=== PATIENT | male | born 1985 | race Caucasian/White ===

== ENCOUNTER 2021-12-13 02:00 | Emergency (ER) | payer SELFPAY ==
--- NOTE | ~2021-12-13 | CT_ITS ---
EXAMINATION: CT abdomen pelvis wo con DATE: 12/13/2021 03:46 INDICATION: Left-sided abdominal pain. TECHNIQUE: 1. Computed tomography (CT) of the abdomen and pelvis was performed without intravenous contrast. Aut omated exposure control and iterative reconstruction technique were employed. The dose-length product was 1795.70 mGy-cm. 2. AP view of the abdomen and pelvis was obtained on 3 supine radiographs. COMPARISON: None FINDINGS: CT: Discoid atelectasis/scarring in the right lower lobe. Heart size is normal. No pericardial or pleural effusion. Subtle gallstones within the otherwise normal-appearing gallbladder. Liver, spleen, pancre as, bilateral adrenal glands and right kidney are normal. 2 mm stone in the distalmost left ureter wi thin 1 cm of the ureterovesicular junction. Minimal left hydronephrosis with asymmetric mild left per inephric stranding. No other urolithiasis. Decompressed bladder is normal. Bowels including appendix are normal. No free intraperitoneal gas or fluid. No pathologically enlarged abdominal or pelvic lymp hadenopathy. Mild lumbar dextrocurvature. Mild to moderate thoracolumbar spondylosis. Chronic appeari ng mild anterior wedging at T10-T12. KUB: 2 mm distal left ureteral stone be discretely discernible in the left hemipelvis on the plain radiogr aphs. No other urolithiasis. Normal bowel gas pattern. IMPRESSION: 1. Single 2 mm stone at the distalmost left ureter with minimal left hydronephrosis. 2. Cholelithiasis. Reviewed, dictated and finalized at location A. IMPRESSION: 1. Single 2 mm stone at the distalmost left ureter with minimal left hydronephr osis. 2. Cholelithiasis.
--- NOTE | ~2021-12-13 | XR_ITS ---
EXAMINATION: XR chest 2V DATE: 12/13/2021 06:31 INDICATION: Hypoxia TECHNIQUE: PA and lateral views of the chest were obtained. COMPARISON: Chest radiograph dated 04/06/2004 FINDINGS: The lungs remain clear with no focal airspace opacities, pulmonary edema, pleural effusion or pneumot horax. The cardiomediastinal silhouette is normal. Visualized bones and soft tissues are unremarkable . IMPRESSION: 1. No acute cardiopulmonary disease. Reviewed, dictated and finalized at location A.
[2021-12-13 02:04] VITALS: BP 158/108; PULSE 96; RESP 18; TEMP 36.7; O2SAT 99
--- NOTE | 2021-12-13 02:29 | ED.MALEGU ---
HPI - Male Genitourinary General Chief complaint: Urogenital-Male <Adilene Roger MD - Last Filed: 12/13/21 19:30> Stated complaint: Left flank pain <Adilene Roger MD - Last Filed: 12/13/21 19:30> Time Seen by Provider: 12/13/21 02:15 <Adilene Roger MD - Last Filed: 12/13/21 19:30> Source: patient and RN notes reviewed <Adilene Roger MD - Last Filed: 12/13/21 19:30> Mode of arrival: ambulatory <Adilene Roger MD - Last Filed: 12/13/21 19:30> Limitations: no limitations <Adilene Roger MD - Last Filed: 12/13/21 19:30> History of Present Illness HPI Narrative: This is a 36 year old male who presents for evaluation of left lower abdominal pain. He developed sudden onset pain at 11 pm tonight. His pain has been constant and nonradiating. He has not taken any medication for pain. He states his pain feels similar to episode of kidney stone 6 years ago. He denies associated nausea, vomiting, fever, hematuria or dysuria. He rates pain 10/10 <Adilene Roger MD - Last Filed: 12/13/21 19:30> Related Data Allergies/Adverse reactions: Allergies Allergy/AdvReac Type Severity Reaction Status Date / Time No Known Allergies Allergy Verified 12/13/21 02:07 <Adilene Roger MD - Last Filed: 12/13/21 19:30> Review of Systems Review of Systems: All systems reviewed & are unremarkable except as noted in HPI and below <Adilene Roger MD - Last Filed: 12/13/21 19:30> Constitutional: Constitutional: Denies chills, Denies fatigue and Denies fever(s) <Adilene Roger MD - Last Filed: 12/13/21 19:30> Cardiovascular: Cardiovascular: Denies chest pain and Denies rapid heart rate <Adilene Roger MD - Last Filed: 12/13/21 19:30> Respiratory: Respiratory: Denies chest congestion and Denies cough <Adilene Roger MD - Last Filed: 12/13/21 19:30> Gastrointestinal: Gastrointestinal: Reports abdominal pain, Denies diarrhea, Denies nausea and Denies vomiting <Adilene Roger MD - Last Filed: 12/13/21 19:30> Genitourinary: Genitourinary: Denies hematuria and Denies dysuria <Adilene Roger MD - Last Filed: 12/13/21 19:30> Musculoskeletal: Musculoskeletal: Denies back pain <Adilene Roger MD - Last Filed: 12/13/21 19:30> PMFSH Past Medical History Medical History: Medical History (Updated 12/13/21 @ 06:33 by Adilene Roger MD) Kidney stone <Adilene Roger MD - Last Filed: 12/13/21 19:30> Social History Social History: Social History (Updated 12/13/21 @ 02:31 by Adilene Roger MD) Substance use type: marijuana <Adilene Roger MD - Last Filed: 12/13/21 19:30> Exam Const: General: alert <Adilene Roger MD - Last Filed: 12/13/21 19:30> Nutritional Appearance: well nourished <Adilene Roger MD - Last Filed: 12/13/21 19:30> Other: patient appears to be in pain <Adilene Roger MD - Last Filed: 12/13/21 19:30> HENMT: Head: normal to inspection <Adilene Roger MD - Last Filed: 12/13/21 19:30> Eyes: EOM: EOMs intact bilaterally <Adilene Roger MD - Last Filed: 12/13/21 19:30> Resp: Effort & Inspection: normal respiratory effort <Adilene Roger MD - Last Filed: 12/13/21 19:30> Auscultation: clear to auscultation bilaterally <Adilene Roger MD - Last Filed: 12/13/21 19:30> Cardio: Rate: regular rate <Adilene Roger MD - Last Filed: 12/13/21 19:30> Rhythm: regular rhythm <Adilene Roger MD - Last Filed: 12/13/21 19:30> Heart sounds: no murmurs <Adilene Roger MD - Last Filed: 12/13/21 19:30> GI: GI Palp: Yes Soft to palpation, No Tenderness to palpation present (GI), No Guarding due to palpation present (GI) and No Rigid due to palpation <Adilene Roger MD - Last Filed: 12/13/21 19:30> Auscultation: normal bowel sounds <Adilene Roger MD - Last Filed: 12/13/21 19:30> Skin: General skin exam: normal color <Adilene Roger MD - Last Filed: 12/13/21 19:30> Ra
[2021-12-13 03:06] LABS: Basophils Absolute Auto 0.1 K/mm3 (0.0-0.1); Basophils Percent Auto 0.3 % (0.2-1.2); Eosinophils Absolute Auto 0.2 K/mm3 (0-0.3); Eosinophils Percent Auto 1.5 % (0-4.4); Hematocrit 47.7 % (42.0-52.0); Hemoglobin 15.4 g/dL (14.0-18.0); Immature Granulocyte Absolute 0.07 K/mm3 (0.00-0.031); Immature Granulocyte Percent A 0.4 % (0-0.5); Lymphocytes Absolute Auto 3.02 K/mm3 (0.9-3.2); Lymphocytes Percent Auto 19.2 % (18.3-44.2); Mean Corpuscular HGB Conc 32.3 g/dl (32-36); Mean Corpuscular Hemoglobin 28.9 pg (26-34); Mean Corpuscular Volume 89.7 fl (80-100); Mean Platelet Volume 9.8 fl (7.4-10.4); Monocytes Absolute Auto 1.7 K/mm3 (0.1-0.6); Monocytes Percent Auto 10.6 % (2.6-8.5); Neutrophils Absolute Auto 10.7 K/mm3 (1.3-6.7); Platelet Count Result 267 k/mm3 (150-375); Red Blood Count 5.32 M/mm3 (4.6-6.20); Red Cell Distribution Width 14.5 % (11.5-14.5); White Blood Count 15.8 K/mm3 (4.5-10.0)
[2021-12-13 03:15] LABS: Alanine Aminotransferase 29 U/L (6-50); Albumin Level 4.4 g/dL (3.5-5.1); Alkaline Phosphatase 112 U/L (38-126); Anion Gap 10 mmol/L (8-16); Aspartate Amino Transferase 23 U/L (17-59); Bilirubin,Total 0.4 mg/dL (0.2-1.3); Blood Urea Nitrogen 19 mg/dL (9-20); Calcium 9.4 mg/dL (8.4-10.2); Carbon Dioxide 28 mmol/L (22-30); Chloride 103 mmol/L (98-107); Estimated CRCL calculation 112 ml/min; Estimated Glomerular Filt Rate > 60; Glucose 129 mg/dL (65-110); Sodium 141 mmol/L (137-145)
[2021-12-13] MEDS: ONDANSETRON INJ 4 MG/2 ML VIAL IV PUSH (03:28)
[2021-12-13] MEDS: HYDROmorphone HCL INJ (*CRX) 1 MG/ML SYR IV PUSH (03:29)
[2021-12-13 04:21] LABS: Appearance Urine Clear (Clear); Bilirubin Urine 1+ (Negative); Blood Urine Negative (Negative); Color Urine Yellow (Yellow); Glucose Urine UA Negative (Negative); Ketones Urine 1+ mg/dL (Negative); Leukocyte Esterase Ur Negative LEU/UL (Negative); Nitrate Urine Negative (Negative); Protein Urine Negative (Negative); Specific Grav Ur >= 1.030 (1.001-1.035); Urobilinogen Urine 0.2 mg/dL (<2.0); pH Urine 5.5 (5.0-9.0)
[2021-12-13 04:39] LABS: Calcium Oxalate Crystals Urine Present /hpf; Mucus Urine Rare /lpf; RBC Urine 0-2 /hpf (0-2); Squamous Epithelial Cell Urine Rare /hpf (Few); WBC Urine 0-3 /hpf
[2021-12-13 04:43] LABS: Add Urine Microscopic? YES
[2021-12-13] MEDS: TAMSULOSIN HCL 0.4 MG CAPSULE PO (05:01)
[2021-12-13] MEDS: KETOROLAC 30 MG/ML VIAL (*BKC) IV PUSH (05:01)
--- NOTE | 2021-12-13 07:10 | PC.NURSE ---
Assumed care of pt in room 6.
[2021-12-13 07:11] VITALS: O2SAT 92
--- NOTE | 2021-12-13 07:11 | PC.NURSE ---
Per EDP turned off pt's oxygen. Pt tolerating at this time with sp02 at 93% at this time on room air.
[2021-12-13 07:18] VITALS: BP 149/96; PULSE 103; RESP 18; O2SAT 87
[2021-12-13 07:27] LABS: SARS-CoV-2 RNA PCR Negative
--- NOTE | 2021-12-13 07:27 | PC.NURSE ---
walked pt while monitoring sp02. Pt tolerated very well and maintained spo02 of 94% or greater.
[2021-12-13 07:41] VITALS: BP 139/81; PULSE 104; RESP 19; O2SAT 93
== END 2021-12-13 07:41 | disposition home or self-care (01) ==
PROVIDERS: Emergency Provider General Practice
DX: N13.2 Hydronephrosis with renal and ureteral calculous obstruction (principal); Z20.822 Contact with and (suspected) exposure to COVID-19; K80.20 Calculus of gallbladder without cholecystitis without obstruction; Z87.442 Personal history of urinary calculi
CPT/HCPCS: 36415; 71046; 74018; 74176; 80053; 81001; 85025; 96374; 96375; 99284; A9270; C9803; J1170; J1885; J2405; U0003; U0005

== ENCOUNTER 2022-10-22 13:54 | Inpatient (IN) | payer MEDICAID, SELFPAY ==
[2022-10-22] VITALS (18 sets, daily range): BP systolic 119–169; BP diastolic 65–94; PULSE 89–929; RESP 14–25; TEMP 36.6–36.9; O2SAT 80–97; BMI 59.6
--- NOTE | ~2022-10-22 | CT_ITS ---
Clinical Indication: Hypoxia, tachycardia CT Scan of the Chest with Contrast: Technique: Contiguous sections were acquired throughout the chest after intravenous administration of 200 cc of Omnipaque 350. Dose reduction technique was used on this scan by utilizing automated expos ure control and iterative reconstruction technique. The dose-length product (DLP) was 2026.61 mGy-cm. Findings: There is no evidence of any significant mediastinal, hilar or axillary lymphadenopathy. Exam is essen tially nondiagnostic for pulmonary embolus. There is no evidence of aortic dissection or aneurysm. There is no evidence of pleural or pericardial effusion. There is mild groundglass opacity involving much of the lungs. No nodule or consolidation evident oth erwise. Images through the upper abdomen reveal no abnormalities. Impression: Exam is essentially nondiagnostic for pulmonary embolus. Consider VQ scan for further evaluation. Mild extensive groundglass pulmonary opacity. This finding is somewhat nonspecific, with a broad diff erential diagnosis. Consider hypoventilatory change, mild pulmonary edema, bronchiolitis, hypersensit ivity pneumonitis, or atypical infection. Reviewed, dictated and finalized at location . Impression: Exam is essentially nondiagnostic for pulmonary embolus. Consider VQ scan for f urther evaluation. Mild extensive groundglass pulmonary opacity. This finding is somewhat nonspeci fic, with a broad differential diagnosis. Consider hypoventilatory change, mild pulmonary edema, bronchiolitis, hypersensitivity pneumonitis, or atypical infe ction.
--- NOTE | ~2022-10-22 | XR_ITS ---
Portable chest x-ray Comparison: 12/13/2021 Clinical History: Dyspnea Findings: There is mild diffuse haziness in the lungs. No pleural effusion or pneumothorax. Cardiom ediastinal silhouette is stable. Bones and soft tissues are unremarkable. Impression: Mild diffuse haziness in the lungs. Correlate for pulmonary edema or atypical infection. Reviewed, dictated and finalized at [facility]. Impression: Mild diffuse haziness in the lungs. Correlate for pulmonary edema or atypical i nfection.
--- NOTE | ~2022-10-22 | US_ITS ---
EXAMINATION: US venous doppler [facility] DATE: 10/23/2022 20:30 INDICATION: Bilateral lower limb edema TECHNIQUE: Spring scale images without and with compression and Doppler images of the bilateral lower e xtremity veins were obtained. COMPARISON: None FINDINGS: The right common femoral vein, profunda femoral vein, femoral vein, popliteal vein, peroneal trunk, p osterior tibial veins, and greater saphenous vein are patent. The left common femoral vein, profunda femoral vein, femoral vein, popliteal vein, peroneal trunk, po sterior tibial veins, and greater saphenous vein are patent. IMPRESSION: 1. Patent bilateral lower extremity veins. No evidence of deep venous thrombosis. Reviewed, dictated and finalized at location F. IMPRESSION: 1. Patent bilateral lower extremity veins. No evidence of deep venous thrombosi s.
--- NOTE | ~2022-10-22 | CT_ITS ---
EXAMINATION: CTA chest PE protocol DATE: 10/25/2022 15:41 INDICATION: Shortness of breath TECHNIQUE: Computed tomography angiography (CTA) of the chest was performed with 100 mL Omnipaque-350 intravenous contrast timed to evaluate the pulmonary arteries. Coronal maximum intensity projection 3D-reconstructions were created by the technologist. The dose-length product (DLP) was 2992.45 mGy-cm . Automated exposure control and iterative reconstruction technique were employed. COMPARISON: None. FINDINGS: There is fair opacification of the pulmonary arteries. No central pulmonary embolus is iden tified. There are diffuse groundglass opacities of the lungs with interval worsening. Areas of linear atelectasis are present in the lower lobes, right greater than left. No pleural effusion or pneumoth orax. The heart size is normal. There is mild bilateral hilar lymphadenopathy, likely reactive. IMPRESSION: 1. No central pulmonary embolus identified, sensitivity limited by fair opacification of the pulmonar y arteries. 2. Diffuse lung disease with interval worsening, consistent with pneumonia and/or pulmonary edema and /or atelectasis. Reviewed, dictated and finalized at location F. IMPRESSION: 1. No central pulmonary embolus identified, sensitivity limited by fair opacifi cation of the pulmonary arteries. 2. Diffuse lung disease with interval worsening, consistent with pneumonia and/ or pulmonary edema and/or atelectasis.
--- NOTE | 2022-10-22 14:10 | ECG_ITS ---
Measurements Intervals [place] Rate: 101 P: 44 IL: 146 QRS: 47 QRSD: 83 T: 18 QT: 326 QTc: 422 Interpretive Statements SINUS TACHYCARDIA NONSPECIFIC T-WAVE ABNORMALITY ABNORMAL ECG NO PREVIOUS ECG AVAILABLE FOR COMPARISON Electronically Signed On 10-23-2022 10:17:19 CDT by Phong Chaparro M.D.
--- NOTE | 2022-10-22 14:20 | ED.EXTPRO ---
HPI - Extremity Problem General Chief complaint: Extremity Problem,Nontraumatic Stated complaint: foot swelling Time Seen by Provider: 10/22/22 14:10 History of Present Illness HPI Narrative: Patient is a 36-year-old male presenting with leg swelling and shortness of breath. Patient states that he has had worsening swelling over the last several days. States that he has also been increasingly short of breath. Patient's mother is at bedside and assists with the history. States that the patient smokes at least a pack a day. States that he has become increasingly obese. She is concerned about his health. He denies fevers or chills, headache, chest pain, palpitations, lightheadedness, abdominal pain, vomiting, diarrhea, dysuria. States that he does sometimes have pain in his legs related to the swelling. Related Data Allergies Allergy/AdvReac Type Severity Reaction Status Date / Time No Known Allergies Allergy Verified 10/22/22 13:55 Review of Systems Review of Systems: All systems reviewed & are unremarkable except as noted in HPI and below PMFSH Past Medical History Medical History (Updated 11/07/22 @ 13:53 by Su Hernandez MD) Kidney stone Morbid obesity Tobacco dependence Surgical History Surgical History (Updated 10/22/22 @ 23:46 by Ronda Pillai PA-C) History of orthopedic surgery Right hand surgery. Family History Family History Mother Coronary artery disease COPD (chronic obstructive pulmonary disease) IBS (irritable bowel syndrome) Diverticulitis Grandparent Diabetes mellitus Social History Social History (Updated 10/22/22 @ 23:46 by Ronda Pillai PA-C) Social History: Surrogate medical decision maker: Brinda Castillo, mother. Code status: Full code. Smoking packs per day: 1.5 Smoking cigarettes per day: 30.0 Years smoked: 18 Smoking pack-years: 27.00 Smoking status: Current every day smoker Tobacco type: cigarettes Alcohol intake: former Substance use: current Substance use type: marijuana Lack of Transportation: No Lack of Food: Never True Current Housing: I Have Housing Concerned About Future Housing: No Difficulty Paying Gas/Electric Bills: No Difficulty Paying for Meds: No Currently Unemployed: YES Education: Grade School Difficulty w/ Childcare or Family Care: No Additional living arrangements comments: Patient lives with his mother in [place]. He has 2 young children. Additional occupation/education comments: Not currently employed. Spiritual care concerns: No Exam Narrative: GENERAL: Morbidly obese gentleman lying in bed in moderate respiratory distress, diaphoretic HEAD: Normocephalic, atraumatic. EYES: PERRLA and EOMI. ENT: Nares clear, no rhinorrhea or epistaxis. Mucous membranes moist. NECK: Supple. CHEST: Diminished breath sounds bilaterally, no wheezing or crackles; exam is limited due to body habitus HEART: Tachycardic, regular rhythm, no murmur heard. Normal peripheral pulses. ABDOMEN: Soft, distended obese abdomen, nontender EXTREMITIES: Normal range of motion. 2+ pitting edema bilateral lower extremities SKIN: Warm, dry, no rash. NEURO: No focal deficits. Alert and oriented x3. PSYCH: Normal mood and affect. Course Vital Signs Vital signs: Vital Signs Pulse Oximetry 94 10/22/22 14:00 Oxygen Delivery Nasal Cannula 10/22/22 14:00 Oxygen Flow Rate 2.0 10/22/22 14:00 Temperature 97 F L 10/27/22 11:44 Pulse Rate 100 10/27/22 12:00 Respiratory Rate 18 10/27/22 11:44 Blood Pressure 151/75 H 10/27/22 12:30 Pulse Oximetry 95 10/27/22 12:00 Oxygen Delivery Nasal Cannula 10/27/22 12:00 Oxygen Flow Rate 5 10/27/22 12:00 Fraction of Inspired Oxygen 52 10/27/22 04:00 MDM - Extremity (Nontraumatic) MDM Narrative Medical decision making narrative: Patient is a 36-year-old male presenting with bilate
[2022-10-22 14:22] LABS: Basophils Absolute Auto 0.1 K/mm3 (0.0-0.1); Basophils Percent Auto 0.4 % (0.2-1.2); Eosinophils Absolute Auto 0.3 K/mm3 (0-0.3); Eosinophils Percent Auto 1.5 % (0-4.4); Hematocrit 55.6 % (42.0-52.0); Hemoglobin 16.9 g/dL (14.0-18.0); Immature Granulocyte Absolute 0.08 K/mm3 (0.00-0.031); Immature Granulocyte Percent A 0.5 % (0-0.5); Lymphocytes Absolute Auto 3.21 K/mm3 (0.9-3.2); Mean Corpuscular HGB Conc 30.4 g/dl (32-36); Mean Corpuscular Hemoglobin 26.4 pg (26-34); Mean Corpuscular Volume 86.9 fl (80-100); Mean Platelet Volume 9.1 fl (7.4-10.4); Monocytes Absolute Auto 1.8 K/mm3 (0.1-0.6); Monocytes Percent Auto 10.5 % (2.6-8.5); Neutrophils Absolute Auto 11.5 K/mm3 (1.3-6.7); Neutrophils Percent Auto 68.1 % (45.5-73.1); Platelet Count Result 280 k/mm3 (150-375); White Blood Count 16.9 K/mm3 (4.5-10.0)
[2022-10-22] MEDS: IPRATROPIUM BR 0.02% INH SOLN 0.5 MG/2.5 ML VIAL INHALATION (14:28)
[2022-10-22] MEDS: ALBUTEROL SULFATE NEB 2.5 MG/3 ML INH 10 MG INHALATION (14:28)
[2022-10-22 14:33] LABS: Alanine Aminotransferase 35 U/L (6-50); Albumin Level 4.5 g/dL (3.5-5.1); Alkaline Phosphatase 91 U/L (38-126); Anion Gap 5 mmol/L (8-16); Aspartate Amino Transferase 28 U/L (17-59); Bilirubin,Total 0.6 mg/dL (0.2-1.3); Blood Urea Nitrogen 13 mg/dL (9-20); Calcium 9.2 mg/dL (8.4-10.2); Carbon Dioxide 36 mmol/L (22-30); Chloride 97 mmol/L (98-107); Estimated CRCL calculation 216 ml/min; Estimated Glomerular Filt Rate > 60; Glucose 85 mg/dL (65-110); Potassium 4.7 mmol/L (3.4-5.0); Sodium 138 mmol/L (137-145)
[2022-10-22 14:44] LABS: INR 0.9; NT Pro B Type Natriuretic Pept 341 pg/mL (19.9-100); Prothrombin Time 12.4 Seconds (11.1-14.7); Troponin I < 0.012 ng/mL (0.000-0.034)
[2022-10-22 14:45] LABS: Partial Thromboplastin Time 26.7 SECONDS (22.3-36.8)
--- NOTE | 2022-10-22 16:03 | PC.NURSE ---
pt. to XR
[2022-10-22 17:29] LABS: Base Excess ABG 1.4 mEq/l (+/-2.0); Fractional Inspired Oxygen 28 %; HCO3 ABG 28.8 mEq/l (22.0-26.0); Oxygen Content ABG 20.6 %vol (16.0-22.0); Oxygen Saturation ABG 94.3 % (95.0-100.0); PCO2 ABG 55.7 mmHg (35.0-45.0); PO2 ABG 76.9 mmHg (80.0-100.0); PO2 FiO2 Ratio Arterial Blood 2.75 %; Total Hemoglobin 16.7 g/dL (12.0-18.0); pH ABG 7.331 (7.350-7.450)
[2022-10-22 17:33] LABS: Device NASAL CANNULA; Modified Allen's Test Pass; Oxyhemoglobin 87.7 % THb (90.0-100.0); Site Drawn RIGHT RADIAL
--- NOTE | 2022-10-22 18:00 | PC.NURSE ---
RN noticed pt. Pulse oxygen dropped to 38%, RN in to assess pt. pt. face noted to be purple, pt. responded to painful stimuli, position changed and oxygen increased to 4.0L NC. pt. alert and orientedx4 acting appropriately. pt. oxygen saturation reading at 96%. THI and Jabari KAMINSKI notified, no further orders at this time.
--- NOTE | 2022-10-22 19:36 | PC.NURSE ---
Per Dr. Hernandez a lipase blood draw is not need nor is the three hour troponin, however a 6 hour troponin will still need to be drawn.
[2022-10-22 20:10] LABS: Influenza A QL RT-PCR Negative (Negative); Influenza B QL RT-PCR Negative (Negative); RSV RNA, RT-PCR Negative (Negative); SARS-CoV-2 RNA PCR Negative (Negative)
[2022-10-22 20:16] LABS: Troponin I < 0.012 ng/mL (0.000-0.034)
--- NOTE | 2022-10-22 20:29 | ADMGEN ---
This patient, Jc Dinh, was admitted to IMU Room 202-. Patient/family oriented to hospital policies and general routines including ID bracelet, bed and alarms, visiting hours, pain management, procedures, bathroom and other care routines, personal items, smoking policy, room service/diet, and visiting hours. Information on how to activate the Rapid Response Team has been discussed. Patient/Family are encouraged to report perceived risks to care and to ask questions if they do not understand what they are told or what they should do.
--- NOTE | 2022-10-22 23:40 | PM.IMHP ---
H&P: HPI History of Present Illness Date/Time: 10/22/22 19:00 Chief Complaint: Leg swelling and shortness of breath. Narrative: This is a 36-year-old male smoker with bipolar disorder and morbid obesity who presented to the emergency department via private vehicle from home for evaluation of leg swelling and shortness of breath. The patient provides the following history and his mother provides additional information with the patient's permission. Over the past 5 days or so he has developed swelling in his feet up to the knees and his mother has noticed that he seems to be increasingly short of breath with exertion. The patient himself indicates that he will get short of breath at times with activity but he does not think it limits his ability to do everyday tasks however mother disagrees. Mother is also concerned that he has sleep apnea as he snores heavily she has witnessed apneic episodes. Emergency department his SpO2 dropped to 38% on 2 L nasal cannula while he was and rebounded quickly once he was awake and. He admits that he sleeps poorly because ?I am up and down all night? and he reports that he frequently wakes himself up coughing. He denies overt orthopnea but it sounds like he sleeps in a recliner quite frequently. He denies fever, chills, sweats, chest pain, pleuritic pain, palpitations, productive cough, nausea, vomiting, and calf pain. No recent travel or sick contacts. No personal or family history of venous thromboembolism. Workup in the ED was significant for a WBC count of 16.9, pH 7.331, pCO2 55.7, proBNP 341. He tested negative for influenza, RSV, and COVID. Chest x-ray showed mild diffuse haziness in the lungs, possible pulmonary edema or atypical infection. CTA of the chest was nondiagnostic for pulmonary embolus. Mild extensive ground-glass pulmonary opacities were noted which was read as being somewhat nonspecific. He was given a nebulizer treatment with some improvement his symptoms. He has been started on BiPAP and he is being admitted in this setting for further evaluation. He has no current complaints. Review of Systems Review of Systems: Twelve systems were reviewed and are negative except for as per HPI. [facility] Past Medical History Medical History (Updated 10/22/22 @ 23:51 by Ronda Pillai PA-C) Kidney stone Morbid obesity Tobacco dependence Surgical History Surgical History (Updated 10/22/22 @ 23:46 by Ronda Pillai PA-C) History of orthopedic surgery Right hand surgery. Family History Family History Mother Coronary artery disease COPD (chronic obstructive pulmonary disease) IBS (irritable bowel syndrome) Diverticulitis Grandparent Diabetes mellitus Social History Social History (Updated 10/22/22 @ 23:46 by Ronda Pillai PA-C) Social History: Surrogate medical decision maker: Brinda Castillo, mother. Code status: Full code. Smoking packs per day: 1.5 Smoking cigarettes per day: 30.0 Years smoked: 18 Smoking pack-years: 27.00 Smoking status: Current every day smoker Tobacco type: cigarettes Alcohol intake: former Substance use: current Substance use type: marijuana Lack of Transportation: No Lack of Food: Never True Current Housing: I Have Housing Concerned About Future Housing: No Difficulty Paying Gas/Electric Bills: No Difficulty Paying for Meds: No Currently Unemployed: YES Education: Grade School Difficulty w/ Childcare or Family Care: No Additional living arrangements comments: Patient lives with his mother in [place]. He has 2 young children. Additional occupation/education comments: Not currently employed. Spiritual care concerns: No Meds Home Medications and Allergies Home Medications Medication Instructions Recorded Confirmed Type No Home Medications 10/22/22 10/22/22 History Allergies Allergy/AdvReac Type Severity Reaction Status Da
[2022-10-23] VITALS (37 sets, daily range): BP systolic 129–151; BP diastolic 57–79; PULSE 81–121; RESP 18–25; TEMP 36.3–36.6; O2SAT 90–98
--- NOTE | 2022-10-23 | ECHO_ITS ---
Patient Info Name: Jc Dinh Age: 36 years : 1985 Gender: Male Ht: 70 in Wt: 415 lbs BSA: 3.16 m2 HR: 99 bpm BP: 138 / 75 mmHg Heart Rhythm: Sinus Rhythm Technical Quality: Poor Exam Date: 10/23/2022 10:58 AM Exam Location: [facility] Patient Status: Inpatient Admit Date: 10/22/2022 Staff Ordering Physician: Ronda Pillai PA-C Helminthology Teacher: Connie Main RDCS Attending Provider: Kandis Rosales DO Referring Physician: Rosas ROSSI; Exam Type: CA echo dop bubble study w con Study Info Indications - SUSPECTED OUMOU - HYPOXIA R60.9 - Edema, unspecified Complete two-dimentional, color flow and Doppler transthoracic echocardiogram is performed with agitated saline and with contrast to opacify the left ventricle and to improve the delineation of the left ventricle endocardial borders. Contrast/Agitated Saline Contrast/Ag. Saline: Agitated Saline Amount: 30.00 ml Administered By: Bhavana Heard RDCS Existing IV Access: Yes Contrast/Ag. Saline: Definity Amount: 7.00 ml Administered By: Connie Main RDCS Existing IV Access: Yes Reason for Poor Study: patient body habitus Summary 1. Technically difficult exam with poor image quality because of obesity. 2. Grossly normal appearing left ventricular systolic and diastolic function. 3. No obvious valvular abnormality. 4. Agitated saline contrast does not show any obvious intracardiac shunt however image quality again is poor because of obesity. Left Ventricle Left ventricular chamber dimension is normal. Left ventricular systolic function is normal, estimated at 60-65%. The left ventricular diastolic function is normal. Right Ventricle Right ventricular chamber dimension is not well visualized. Left Atria Left atrial chamber dimension is normal. Right Atria Right atrial chamber dimension is not well visualized. Atrial Septum Intact interatrial septum visualized by agitated saline imaging. Aortic Valve The aortic valve is normal. Pulmonic Valve The pulmonic valve is not well visualized. Mitral Valve The mitral valve has normal leaflets. Tricuspid Valve The tricuspid valve leaflets are not well visualized. Pericardium/Pleural The pericardium appears normal. Aorta The aortic root size at the sinus of Valsalva is not well visualized. Left Ventricular Outflow Tract Name Value Normal LVOT 2D LVOT Diameter 2.1 cm LVOT Doppler LVOT Peak Gradient 5 mmHg LVOT Mean Gradient 2 mmHg LVOT VTI 18 cm LVOT VTI/AV VTI Ratio 0.8 LVOT Stroke Volume 67 ml LVOT CO 6.7 l/min LVOT CI 2.1 l/min/m2 Pulmonic Valve Name Value Normal RVOT Doppler RVOT Peak Gradie
[2022-10-23] MEDS: FUROSEMIDE INJ 40 MG/4 ML VIAL IV PUSH ×3 (00:15→16:59)
[2022-10-23 00:29] LABS: Alveolar/Arterial O2 Gradient 127.2 mmHg; Base Excess ABG 7.8 mEq/l (+/-2.0); Fractional Inspired Oxygen 40 %; HCO3 ABG 38.1 mEq/l (22.0-26.0); Methemoglobin ABG 0.4 %THb (0-1.5); Oxygen Content ABG 20.6 %vol (16.0-22.0); Oxygen Saturation ABG 90.4 % (95.0-100.0); PO2 ABG 66.8 mmHg (80.0-100.0); PO2 FiO2 Ratio Arterial Blood 1.67 %; Reduced Hemoglobin 7.7 %THb (0-5.0); Total Hemoglobin 16.9 g/dL (12.0-18.0)
[2022-10-23 00:32] LABS: PCO2 ABG 79.3 mmHg (35.0-45.0)
[2022-10-23 00:34] LABS: Device NON-INVASIVE VENT; Modified Allen's Test Pass; Site Drawn RIGHT RADIAL
[2022-10-23 00:36] LABS: Carboxyhemoglobin 4.9 % THb (0-2.0); Non-Invasive Expiratory Pressure 6 CMH2O; Non-Invasive Inspiratory Pressure 16 CMH2O; Non-Invasive Vent Rate 14 /MIN
--- NOTE | 2022-10-23 01:29 | PC.NURSE ---
Pt did not respond to RN in attempts to wake him for assessment, sternal rubbed and pt moved in response to the pain, but it took a few minutes for pt to respond by opening his eyes.
[2022-10-23 01:47] LABS: Alveolar/Arterial O2 Gradient 204.4 mmHg; Base Excess ABG 7.8 mEq/l (+/-2.0); Fractional Inspired Oxygen 50 %; HCO3 ABG 36.7 mEq/l (22.0-26.0); Methemoglobin ABG 0.3 %THb (0-1.5); Oxygen Content ABG 22.1 %vol (16.0-22.0); Oxygen Saturation ABG 94.1 % (95.0-100.0); Oxyhemoglobin 90.8 % THb (90.0-100.0); PO2 ABG 75.8 mmHg (80.0-100.0); PO2 FiO2 Ratio Arterial Blood 1.52 %; Reduced Hemoglobin 4.9 %THb (0-5.0); Total Hemoglobin 17.3 g/dL (12.0-18.0); pH ABG 7.351 (7.350-7.450)
[2022-10-23 01:49] LABS: Device NON-INVASIVE VENT; Modified Allen's Test Pass; PCO2 ABG 67.8 mmHg (35.0-45.0); Site Drawn RIGHT RADIAL
[2022-10-23 01:50] LABS: Non-Invasive Expiratory Pressure 10 CMH2O; Non-Invasive Inspiratory Pressure 20 CMH2O; Non-Invasive Vent Rate 22 /MIN
[2022-10-23] MEDS: IPRATROPIUM BR 0.02% INH SOLN 0.5 MG/2.5 ML VIAL INHALATION ×6 (02:19→23:31)
[2022-10-23] MEDS: ALBUTEROL SULFATE NEB 2.5 MG/3 ML INH INHALATION ×6 (02:20→23:31)
[2022-10-23 04:52] LABS: Hemoglobin 16.3 g/dL (14.0-18.0); Mean Corpuscular HGB Conc 29.6 g/dl (32-36); Mean Corpuscular Hemoglobin 25.5 pg (26-34); Mean Corpuscular Volume 86.1 fl (80-100); Mean Platelet Volume 9.7 fl (7.4-10.4); Platelet Count Result 252 k/mm3 (150-375); Red Blood Count 6.39 M/mm3 (4.6-6.20); Red Cell Distribution Width 18.6 % (11.5-14.5); White Blood Count 13.5 K/mm3 (4.5-10.0)
[2022-10-23 04:53] LABS: Alveolar/Arterial O2 Gradient 209.4 mmHg; Base Excess ABG 7.2 mEq/l (+/-2.0); Carboxyhemoglobin 2.7 % THb (0-2.0); Fractional Inspired Oxygen 50 %; HCO3 ABG 37.2 mEq/l (22.0-26.0); Methemoglobin ABG 0.4 %THb (0-1.5); Oxygen Content ABG 20.8 %vol (16.0-22.0); Oxygen Saturation ABG 88.7 % (95.0-100.0); PO2 ABG 62.2 mmHg (80.0-100.0); PO2 FiO2 Ratio Arterial Blood 1.24 %; Reduced Hemoglobin 9.2 %THb (0-5.0); Total Hemoglobin 16.9 g/dL (12.0-18.0)
[2022-10-23 04:56] LABS: Modified Allen's Test Pass; Oxyhemoglobin 87.7 % THb (90.0-100.0); PCO2 ABG 75.5 mmHg (35.0-45.0); Site Drawn LEFT RADIAL
[2022-10-23 04:57] LABS: Device NON-INVASIVE VENT; Non-Invasive Expiratory Pressure 10 CMH2O; Non-Invasive Inspiratory Pressure 20 CMH2O; Non-Invasive Vent Rate 22 /MIN
[2022-10-23 05:04] LABS: Alanine Aminotransferase 32 U/L (6-50); Albumin Level 4.1 g/dL (3.5-5.1); Alkaline Phosphatase 94 U/L (38-126); Anion Gap 3 mmol/L (8-16); Aspartate Amino Transferase 22 U/L (17-59); Bilirubin,Total 0.6 mg/dL (0.2-1.3); Blood Urea Nitrogen 13 mg/dL (9-20); CRP 1.9 mg/dL (<1.0); Calcium 8.8 mg/dL (8.4-10.2); Carbon Dioxide 39 mmol/L (22-30); Chloride 95 mmol/L (98-107); Estimated CRCL calculation 192 ml/min; Estimated Glomerular Filt Rate > 60; Glucose 97 mg/dL (65-110); Magnesium 2.2 mg/dL (1.6-2.3); Potassium 4.3 mmol/L (3.4-5.0); Sodium 137 mmol/L (137-145)
--- NOTE | 2022-10-23 07:11 | PM.IMPN ---
Progress Note: A&P Assessment and Plan (1) Acute respiratory failure with hypoxia and hypercapnia: Code(s): J96.01 - Acute respiratory failure with hypoxia; J96.02 - Acute respiratory failure with hypercapnia Status: Acute Assessment and Plan: Patient presented to the hospital with complaints of increasing shortness of breath and leg swelling for the past 5 days. He was noted to have SpO2 80s on room air and dropped to 75% while ambulating in the emergency department. He was placed on 4 L nasal cannula with SpO2 mid 90s. ABG was completed and noted pH 7.33, PaO2 55, PO2 76.9 and serum TCO2 36 suggesting some acute worsening of chronic hypercapnia. Patient was placed on bipap at that time. Overnight patient was noted to desaturate to 38% while sleeping and nursing notes indicate patient required sternal rub to and was difficult to arouse. Repeat ABG at 4:00 a.m. showed pH 7.31, pCO2 76, and PaO2 62. Bipap settings were adjusted to 09/05/22/FiO2 60%. 10/23/22 Repeat ABG at 0800 showed improvement with pH 7.37, PaCO2 58.2, PaO2 66, and oxyhemoglobin 90.4. Continue current BiPAP settings for now until evaluated by Pulmonology. Pulmonology consulted and appreciate recommendations. Chest x-ray and CTA chest showed extensive ground-glass pulmonary opacities suggesting possible pulmonary edema versus atypical infection continue IV antibiotics possible pneumonia; WBC 16 on admission, CRP 1.9, procalcitonin 0.1 Continue iV diuresis for possible pulmonary edema; BNP 341 but may be falsely depressed due to obesity. Echocardiogram pending CTA chest was nondiagnostic for pulmonary embolus. V/Q scan recommended however patient did have abnormal chest x-ray. D-dimer 0.61 Patient is obese BMI 60 and reportedly was noted to have significant desaturation while asleep. Suggesting obesity related hypoventilation (2) Obesity hypoventilation syndrome: Code(s): E66.2 - Morbid (severe) obesity with alveolar hypoventilation Status: Acute Assessment and Plan: As above. Patient placed on BiPAP overnight. Pulmonology consulted and managing. (3) Pneumonia: Qualifiers: Pneumonia type: due to unspecified organism Laterality: bilateral Lung location: unspecified part of lung Qualified Code(s): J18.9 - Pneumonia, unspecified organism Code(s): J18.9 - Pneumonia, unspecified organism Status: Acute Assessment and Plan: Patient presented with WBC 16.9, and shortness of breath. He denied fever, chills, night sweats, rigors, sputum. On CTA chest showed diffuse haziness it may suggest atypical pneumonia versus pulmonary edema. Started on azithromycin 500 mg IV Q 24 hours and IV Rocephin 2 g Q 24 hours, 1st dose 10/23/2022 Trend CBC Continue respiratory support as above Monitor for fevers. Blood cultures were drawn and pending COVID-19, influenza a/B, and RSV PCR negative (4) Fluid overload: Qualifiers: Hypervolemia type: unspecified Qualified Code(s): E87.70 - Fluid overload, unspecified Code(s): E87.70 - Fluid overload, unspecified Status: Acute Assessment and Plan: Patient presented to the hospital with bilateral lower extremity up to the abdomen and imaging suggestive possible pulmonary edema. BNP 341. No known heart failure diagnosis. Transthoracic echocardiogram technically difficult study but no gross abnormality to left ventricular systolic diastolic function noted EF was estimated at 60-65%, no significant valvular disease noted, PASP 36, RA pressure 10 Continue diuresis Lasix 40 mg IV b.i.d. for now Continue strict I&O monitoring. Garcia catheter placed for assistance Daily weights (5) Bilateral lower extremity edema: Code(s): R60.0 - Localized edema Status: Acute Assessment and Plan: As above. Venous Doppler bilateral extremity pending (6) Tobacco dependence: Code(s): F17.200 - Nicotine dependen
--- NOTE | 2022-10-23 07:31 | PC.NURSE ---
Called and spoke to mother Brinda to inform her of progress overnight. Alerted her to possible need for intubation if his condition worsens further.
[2022-10-23] MEDS: methylPREDNISolone SOD SUCC 125 MG VIAL IV PUSH (08:01)
[2022-10-23] MEDS: cefTRIAXone 2 GM/NS 100 ML 2 GM/100 ML BAG IVPB (08:06)
[2022-10-23] MEDS: ENOXAPARIN 40 MG/0.4 ML SYRINGE SUB-Q (08:06)
[2022-10-23] MEDS: NICOTINE (*PBKC) 21 MG PATCH 1 PATCH TRANSDERM (08:07)
[2022-10-23 08:22] LABS: Procalcitonin 0.1 ng/mL
[2022-10-23] MEDS: AZITHROMYCIN 500 MG/NS 250 ML 500 MG/250 ML BAG 250 MG IVPB (08:34)
[2022-10-23 08:35] LABS: Alveolar/Arterial O2 Gradient 297.5 mmHg; Base Excess ABG 5.6 mEq/l (+/-2.0); Carboxyhemoglobin 2.4 % THb (0-2.0); Fractional Inspired Oxygen 60 %; HCO3 ABG 33.1 mEq/l (22.0-26.0); Methemoglobin ABG 0.3 %THb (0-1.5); Oxygen Content ABG 22.2 %vol (16.0-22.0); Oxygen Saturation ABG 92.2 % (95.0-100.0); Oxyhemoglobin 90.4 % THb (90.0-100.0); PCO2 ABG 58.2 mmHg (35.0-45.0); PO2 ABG 66.3 mmHg (80.0-100.0); PO2 FiO2 Ratio Arterial Blood 1.11 %; Reduced Hemoglobin 6.9 %THb (0-5.0); Total Hemoglobin 17.5 g/dL (12.0-18.0); pH ABG 7.373 (7.350-7.450)
[2022-10-23 08:38] LABS: Device NON-INVASIVE VENT; Modified Allen's Test Pass; Site Drawn LEFT RADIAL
[2022-10-23 08:39] LABS: Non-Invasive Expiratory Pressure 12 CMH2O; Non-Invasive Inspiratory Pressure 20 CMH2O; Non-Invasive Vent Rate 22 /MIN
[2022-10-23 09:03] LABS: NT Pro B Type Natriuretic Pept 122 pg/mL (19.9-100)
[2022-10-23 09:11] LABS: Free T4 Free Thyroxine 1.35 ng/mL (0.78-2.19)
[2022-10-23 10:42] LABS: Appearance Urine Clear (Clear); Bacteria Urine None Seen /hpf; Bilirubin Urine Negative (Negative); Blood Urine Trace (Negative); Color Urine Yellow (Yellow); Glucose Urine UA Negative (Negative); Ketones Urine Negative (Negative); Leukocyte Esterase Ur Negative LEU/UL (Negative); Nitrate Urine Negative (Negative); Non Pathogenic Casts 0-2; Protein Urine Negative (Negative); RBC Urine 0-2 /hpf (0-2); Specific Grav Ur 1.011 (1.001-1.035); Squamous Epithelial Cell Urine None seen /hpf (Few); Urobilinogen Urine 0.2 mg/dL (<2.0); WBC Urine 0-5 /hpf
[2022-10-23 10:53] LABS: Add Urine Microscopic? YES
[2022-10-23] MEDS: PERFLUTREN LIPID MICROSPHERES 1.5 ML VIAL DILUTED TO 10 ML TOTAL VOLUME IV PUSH (11:30)
--- NOTE | 2022-10-23 11:45 | PM.CNPUL ---
Assessment and Plan Assessment and plan (1) Obesity hypoventilation syndrome: Code(s): E66.2 - Morbid (severe) obesity with alveolar hypoventilation Status: Acute Assessment and Plan: Patient with morbid obesity and has gained 120 lb in the last year. Current BMI is 60.5. No evidence of thyroid disease with TSH of 2.73 and a free T4 of 1.35 both normal. Patient does have fluid overload but has been diuresed states he is breathing better and his edema has improved. His BNP today is 122. There is no evidence of bullous emphysema on his CT scan. Patient has obesity hypoventilation syndrome with a presentation blood gas of 7.33/56/77 and this worsened on BiPAP rate of 20, pressures 20/12 in 60% FiO2 with a blood gas of 7.31/76/62. Serum bicarbonate on admission was 36. The patient would benefit from noninvasive ventilation to prevent further deterioration and subsequent hospitalizations. The patient stated the BiPAP was uncomfortable and could not sleep with this. I changed him to a noninvasive ventilator with the AVAPS mode and adjusted the settings to comfort resulting in a rate of 20, tidal volume 500, EPAP 10, minimal inspiratory pressure 11, maximal inspiratory pressure 25, inspiratory time 1.0, rise of 3 and 60% FiO2. Patient's leak was 48. He felt he could tolerate this. 10/23/22: Continue noninvasive ventilation when the patient sleeps and on a p.r.n. basis. I will check an ABG in the morning on these settings to assess his ventilation. I will initiated process for home noninvasive ventilator with the AVAPS-AE mode. discussed with Haley Girard, will follow with you. (2) Fluid overload: Code(s): E87.70 - Fluid overload, unspecified Status: Acute Assessment and Plan: Patient prevents with worsening lower extremity edema and abdominal distention. He has been treated with Lasix 40 IV b.i.d. with a good response. 10/23/22: Agree with as aggressive diuresis as tolerated by his cardiac and renal systems per the hospitalist. Current on Lasix 40 IV b.i.d.. Patient is diuresed 2 L. His weight today is 189.9 kg. Echocardiogram and lower extremity Dopplers have been ordered. (3) Pneumonia: Code(s): J18.9 - Pneumonia, unspecified organism Status: Acute Assessment and Plan: Patient presents with shortness of breath, leukocytosis (16.9) without fever, chills, rigors, cough, phlegm production. CT scan showed diffuse ground glass opacities likely fluid overload. The patient may have atypical pneumonia and is currently on ceftriaxone and azithromycin. Cultures are negative. Covid, influenza and RSV RT PCR studies negative. 10/23: White blood cell count 13.5, continue ceftriaxone and azithromycin, day 1. the patient currently has no wheezes I will continue albuterol and ipratropium nebulizers q.4 hours. He is receive Solu-Medrol on 10/22 and 10/23 and at this time I will discontinue Solu-Medrol and follow the patient clinically. History of Present Illness History of Present Illness Consult date: 10/23/22 Chief complaint: Hypercarbic Hypoxic Respiratory Failure Narrative: 10/23/2022: This is a new pulmonary consultation for acute on chronic hypoxemic and hypercarbic respiratory failure. 36-year-old male with a history of childhood asthma, bipolar disease, kidney stones, tobacco abuse, THC abuse, morbid obesity with a BMI of 60.1. Patient presented to the emergency department on 10/22/2022 with 5-7 days worsening leg swelling and shortness of breath. Patient's mother is in the room an AIDS with the HPI. Patient had childhood asthma was given an inhaler and took it sporadically but has not taken an inhaler since his teenage years and had no evidence of shortness of breath or respiratory issues until approximately 2 years ago. Two years ago the mother noted that he would occasionally have trouble staying awake, snored and had witnessed apneas by his mother.
[2022-10-23 12:43] LABS: D Dimer 0.61 ug/mL (<0.48)
[2022-10-23] MEDS: DOCUSATE SODIUM 100 MG CAPSULE PO (23:21)
[2022-10-23] MEDS: MELATONIN 5 MG TABLET PO (23:21)
[2022-10-24] VITALS (24 sets, daily range): BP systolic 118–131; BP diastolic 58–71; PULSE 89–110; RESP 18–26; TEMP 36.3–36.8; O2SAT 90–96
[2022-10-24] MEDS: IPRATROPIUM BR 0.02% INH SOLN 0.5 MG/2.5 ML VIAL INHALATION ×5 (04:07→20:30)
[2022-10-24] MEDS: ALBUTEROL SULFATE NEB 2.5 MG/3 ML INH INHALATION ×5 (04:07→20:30)
[2022-10-24 05:03] LABS: Basophils Percent Auto 0.2 % (0.2-1.2); Eosinophils Percent Auto 0.2 % (0-4.4); Hematocrit 54.1 % (42.0-52.0); Hemoglobin 16.5 g/dL (14.0-18.0); Immature Granulocyte Absolute 0.08 K/mm3 (0.00-0.031); Immature Granulocyte Percent A 0.4 % (0-0.5); Lymphocytes Absolute Auto 2.55 K/mm3 (0.9-3.2); Lymphocytes Percent Auto 13.9 % (18.3-44.2); Mean Corpuscular HGB Conc 30.5 g/dl (32-36); Mean Corpuscular Hemoglobin 25.9 pg (26-34); Mean Corpuscular Volume 84.9 fl (80-100); Mean Platelet Volume 9.6 fl (7.4-10.4); Monocytes Percent Auto 10.9 % (2.6-8.5); Neutrophils Absolute Auto 13.7 K/mm3 (1.3-6.7); Neutrophils Percent Auto 74.4 % (45.5-73.1); Platelet Count Result 256 k/mm3 (150-375); Red Blood Count 6.37 M/mm3 (4.6-6.20); Red Cell Distribution Width 18.3 % (11.5-14.5); White Blood Count 18.4 K/mm3 (4.5-10.0)
[2022-10-24 05:25] LABS: Alanine Aminotransferase 31 U/L (6-50); Albumin Level 4.1 g/dL (3.5-5.1); Alkaline Phosphatase 95 U/L (38-126); Anion Gap 4 mmol/L (8-16); Aspartate Amino Transferase 21 U/L (17-59); Bilirubin,Total 0.6 mg/dL (0.2-1.3); Blood Urea Nitrogen 17 mg/dL (9-20); Calcium 8.7 mg/dL (8.4-10.2); Carbon Dioxide 39 mmol/L (22-30); Chloride 92 mmol/L (98-107); Estimated CRCL calculation 217 ml/min; Estimated Glomerular Filt Rate > 60; Glucose 110 mg/dL (65-110); Magnesium 2.3 mg/dL (1.6-2.3); Potassium 4.1 mmol/L (3.4-5.0); Sodium 135 mmol/L (137-145)
[2022-10-24 05:36] LABS: Alveolar/Arterial O2 Gradient 262.4 mmHg; Base Excess ABG 2.9 mEq/l (+/-2.0); Device NON-INVASIVE VENT; Fractional Inspired Oxygen 60 %; HCO3 ABG 29.3 mEq/l (22.0-26.0); Modified Allen's Test Pass; Oxygen Content ABG 23.3 %vol (16.0-22.0); Oxygen Saturation ABG 97.9 % (95.0-100.0); Oxyhemoglobin 96.7 % THb (90.0-100.0); PCO2 ABG 50.8 mmHg (35.0-45.0); PO2 ABG 109.5 mmHg (80.0-100.0); PO2 FiO2 Ratio Arterial Blood 1.83 %; Site Drawn RIGHT RADIAL; Total Hemoglobin 17.1 g/dL (12.0-18.0); pH ABG 7.379 (7.350-7.450)
[2022-10-24 05:37] LABS: Non-Invasive Vent Rate 20 /MIN
--- NOTE | 2022-10-24 08:01 | PM.IMPN ---
Progress Note: A&P Assessment and Plan (1) Acute respiratory failure with hypoxia and hypercapnia: Code(s): J96.01 - Acute respiratory failure with hypoxia; J96.02 - Acute respiratory failure with hypercapnia Status: Acute Assessment and Plan: Patient presented to the hospital with complaints of increasing shortness of breath and leg swelling for the past 5 days. He was noted to have SpO2 80s on room air and dropped to 75% while ambulating in the emergency department. He was placed on 4 L nasal cannula with SpO2 mid 90s. ABG was completed and noted pH 7.33, PaO2 55, PO2 76.9 and serum TCO2 36 suggesting some acute worsening of chronic hypercapnia. Patient was placed on bipap at that time. Overnight patient was noted to desaturate to 38% while sleeping and nursing notes indicate patient required sternal rub to and was difficult to arouse. Repeat ABG at 4:00 a.m. showed pH 7.31, pCO2 76, and PaO2 62. Bipap settings were adjusted to 09/05/22/FiO2 60%. 10/23/22 Repeat ABG at 0800 showed improvement with pH 7.37, PaCO2 58.2, PaO2 66, and oxyhemoglobin 90.4. Continue current BiPAP settings for now until evaluated by Pulmonology. 10/24 ABG pH 7.379, pCO2 50.8, PO2 109, serum bicarb 39. May be a component of compensatory alkalosis given diuresis. Pulmonology consulted and appreciate recommendations. Chest x-ray and CTA chest showed extensive ground-glass pulmonary opacities suggesting possible pulmonary edema versus atypical infection continue IV antibiotics possible pneumonia; WBC 16 on admission, CRP 1.9, procalcitonin 0.1 Continue iV diuresis for possible pulmonary edema; BNP 341 but may be falsely depressed due to obesity. Echocardiogram without evidence of CHF, however, body habitus limited study. CTA chest was nondiagnostic for pulmonary embolus. V/Q scan recommended however patient did have abnormal chest x-ray. D-dimer 0.61 Patient is obese BMI 60 and reportedly was noted to have significant desaturation while asleep. Suggesting obesity related hypoventilation (2) Obesity hypoventilation syndrome: Code(s): E66.2 - Morbid (severe) obesity with alveolar hypoventilation Status: Acute Assessment and Plan: As above. Patient placed on BiPAP overnight. Pulmonology consulted and managing. (3) Pneumonia: Qualifiers: Laterality: bilateral Lung location: unspecified part of lung Pneumonia type: due to unspecified organism Qualified Code(s): J18.9 - Pneumonia, unspecified organism Code(s): J18.9 - Pneumonia, unspecified organism Status: Acute Assessment and Plan: Patient presented with WBC 16.9, and shortness of breath. He denied fever, chills, night sweats, rigors, sputum. On CTA chest showed diffuse haziness it may suggest atypical pneumonia versus pulmonary edema. Started on azithromycin 500 mg IV Q 24 hours and IV Rocephin 2 g Q 24 hours, 1st dose 10/23/2022 Trend CBC Continue respiratory support as above Monitor for fevers. Blood cultures pending COVID-19, influenza a/B, and RSV PCR negative 10/24 continue antibiotics as above. WBC 18 today without bandemia. Patient is afebrile. Leukocytosis is likely secondary to IV steroids given on 10/23 (4) Fluid overload: Qualifiers: Hypervolemia type: unspecified Qualified Code(s): E87.70 - Fluid overload, unspecified Code(s): E87.70 - Fluid overload, unspecified Status: Acute Assessment and Plan: Patient presented to the hospital with bilateral lower extremity up to the abdomen and imaging suggestive possible pulmonary edema. BNP 341. No known heart failure diagnosis. Transthoracic echocardiogram technically difficult study but no gross abnormality to left ventricular systolic diastolic function noted EF was estimated at 60-65%, no significant valvular disease noted, PASP 36, RA pressure 10 Continue diureses with Lasix 40 mg IV b.i.d. Continue strict I&O monitoring. Jose brewer
[2022-10-24] MEDS: ENOXAPARIN 40 MG/0.4 ML SYRINGE SUB-Q (09:04)
[2022-10-24] MEDS: FUROSEMIDE INJ 40 MG/4 ML VIAL IV PUSH ×2 (09:04→17:18)
[2022-10-24] MEDS: cefTRIAXone 2 GM/NS 100 ML 2 GM/100 ML BAG IVPB (09:15)
--- NOTE | 2022-10-24 10:20 | PM.PNPUL ---
Progress Note: A&P Assessment and Plan (1) Obesity hypoventilation syndrome: Code(s): E66.2 - Morbid (severe) obesity with alveolar hypoventilation Status: Acute Assessment and Plan: Patient with morbid obesity and has gained 120 lb in the last year. Current BMI is 60.5. No evidence of thyroid disease with TSH of 2.73 and a free T4 of 1.35 both normal. Patient does have fluid overload but has been diuresed states he is breathing better and his edema has improved. His BNP today is 122. There is no evidence of bullous emphysema on his CT scan. Patient has obesity hypoventilation syndrome with a presentation blood gas of 7.33/56/77 and this worsened on BiPAP rate of 20, pressures 20/12 in 60% FiO2 with a blood gas of 7.31/76/62. Serum bicarbonate on admission was 36. The patient would benefit from noninvasive ventilation to prevent further deterioration and subsequent hospitalizations. The patient stated the BiPAP was uncomfortable and could not sleep with this. I changed him to a noninvasive ventilator with the AVAPS mode and adjusted the settings to comfort resulting in a rate of 20, tidal volume 500, EPAP 10, minimal inspiratory pressure 11, maximal inspiratory pressure 25, inspiratory time 1.0, rise of 3 and 60% FiO2. Patient's leak was 48. He felt he could tolerate this. 10/23/22: Continue noninvasive ventilation when the patient sleeps and on a p.r.n. basis. I will check an ABG in the morning on these settings to assess his ventilation. I will initiated process for home noninvasive ventilator with the AVAPS-AE mode. 10/24 Patient states he was off the BiPAP yesterday during most of the day. Patient wore noninvasive ventilator with the AVAPS mode last night and said he slept well and the settings were comfortable after he got used to it for the 1st hour. rate of 20, tidal volume 500, EPAP 10, minimal inspiratory pressure 11, maximal inspiratory pressure 25, inspiratory time 1.0, rise of 3 and 60% FiO2 and ABG prior to removal //110. Currently is on 9 L nasal cannula saturations 91%. White blood cell count 18.4, creatinine 0.7. He has no wheezing on exam. edema is improved on Lasix 40 IV b.i.d. and his weight is 189.6 kg cumulative diuresis is -2.7 L since admission Plan: ABG demonstrates the current AVAPS settings provide adequate ventilation. We will send an order request for noninvasive ventilation with an AVAPS-AE mode to the [employer], via [facility] with the settings of rate 20, tidal volume 500, minimal expiratory pressure 5, maximal expiratory pressure 15, minimal inspiratory pressure 6, maximal inspiratory pressure 25, inspiratory time 1.0 and 6 L bleed in. Once the patient is diuresed I will order an overnight oximetry to assess his oxygen needs at night. Will follow with you. (2) Fluid overload: Qualifiers: Hypervolemia type: unspecified Qualified Code(s): E87.70 - Fluid overload, unspecified Code(s): E87.70 - Fluid overload, unspecified Status: Acute Assessment and Plan: Patient prevents with worsening lower extremity edema and abdominal distention. He has been treated with Lasix 40 IV b.i.d. with a good response. 10/23/22: Agree with as aggressive diuresis as tolerated by his cardiac and renal systems per the hospitalist. Current on Lasix 40 IV b.i.d.. Patient is diuresed 2 L. His weight today is 189.9 kg. later in the day echocardiogram (poor study) with LV EF 60-65%, normal diastolic function, right atrium right ventricle not visualized, RVSP 36, Negative bubble study. LE dopplers negative. 10/24 edema is improved on Lasix 40 IV b.i.d. and his weight is 189.6 kg cumulative diuresis is -2.7 L since admission, Continue aggressive diuresis. (3) Pneumonia: Qualifiers: Pneumonia type: due to unspecified organism Laterality: bilateral Lung location: unspecified part of lung Qualified Code(s): J18.9 - Pneumonia, unspecified organism
[2022-10-24] MEDS: AZITHROMYCIN 500 MG/NS 250 ML 500 MG/250 ML BAG 250 MG IVPB (10:29)
--- NOTE | 2022-10-24 14:39 | PCRCNOTE ---
SIGNED [facility] HOME AVAPS-AE ORDER SCANNED INTO RECORDS
[2022-10-24] MEDS: DOCUSATE SODIUM 100 MG CAPSULE PO (21:15)
[2022-10-25] VITALS (27 sets, daily range): BP systolic 125–145; BP diastolic 62–74; PULSE 91–116; RESP 20–26; TEMP 36–36.6; O2SAT 89–97
--- NOTE | 2022-10-25 00:06 | PCRCNOTE ---
Pt's 0000 updraft treatment omitted due to pt being on overnight pulse oximetry. 0400 treatment will be given.
[2022-10-25] MEDS: IPRATROPIUM BR 0.02% INH SOLN 0.5 MG/2.5 ML VIAL INHALATION ×6 (03:56→23:38)
[2022-10-25] MEDS: ALBUTEROL SULFATE NEB 2.5 MG/3 ML INH INHALATION ×6 (03:57→23:38)
--- NOTE | 2022-10-25 04:25 | PCRCNOTE ---
Apnea link - pulse oximetry was applied to pt last night (10/24/22) on bipap AVAPS mode on 44% FiO2. FiO2 increased to 50% @ 0255 due to pt's oxygen saturation in the mid 80's. Test was terminated at 0400, pt was at 89% and FiO2 was again increased to 60%, leak was improved, and patient's O2 sat came up to 95%
[2022-10-25 04:36] LABS: Basophils Absolute Auto 0.1 K/mm3 (0.0-0.1); Basophils Percent Auto 0.4 % (0.2-1.2); Eosinophils Absolute Auto 0.2 K/mm3 (0-0.3); Eosinophils Percent Auto 1.1 % (0-4.4); Hematocrit 54.8 % (42.0-52.0); Hemoglobin 16.7 g/dL (14.0-18.0); Immature Granulocyte Absolute 0.07 K/mm3 (0.00-0.031); Immature Granulocyte Percent A 0.5 % (0-0.5); Lymphocytes Absolute Auto 2.25 K/mm3 (0.9-3.2); Lymphocytes Percent Auto 15.7 % (18.3-44.2); Mean Corpuscular HGB Conc 30.5 g/dl (32-36); Mean Corpuscular Hemoglobin 26.1 pg (26-34); Mean Corpuscular Volume 85.5 fl (80-100); Monocytes Absolute Auto 1.8 K/mm3 (0.1-0.6); Monocytes Percent Auto 12.2 % (2.6-8.5); Neutrophils Percent Auto 70.1 % (45.5-73.1); Platelet Count Result 230 k/mm3 (150-375); Red Blood Count 6.41 M/mm3 (4.6-6.20); Red Cell Distribution Width 18.6 % (11.5-14.5); White Blood Count 14.3 K/mm3 (4.5-10.0)
[2022-10-25 04:48] LABS: Alanine Aminotransferase 30 U/L (6-50); Alkaline Phosphatase 89 U/L (38-126); Aspartate Amino Transferase 21 U/L (17-59); Blood Urea Nitrogen 20 mg/dL (9-20); Calcium 8.9 mg/dL (8.4-10.2); Carbon Dioxide > 40 mmol/L (22-30); Chloride 92 mmol/L (98-107); Estimated CRCL calculation 192 ml/min; Estimated Glomerular Filt Rate > 60; Glucose 97 mg/dL (65-110); Potassium 3.9 mmol/L (3.4-5.0); Sodium 134 mmol/L (137-145)
[2022-10-25] MEDS: cefTRIAXone 2 GM/NS 100 ML 2 GM/100 ML BAG IVPB (08:27)
[2022-10-25] MEDS: AZITHROMYCIN 500 MG/NS 250 ML 500 MG/250 ML BAG 250 MG IVPB (08:34)
[2022-10-25] MEDS: FUROSEMIDE INJ 40 MG/4 ML VIAL IV PUSH ×2 (08:34→16:48)
[2022-10-25] MEDS: ENOXAPARIN 40 MG/0.4 ML SYRINGE SUB-Q (08:34)
--- NOTE | 2022-10-25 10:28 | PM.PNPUL ---
Progress Note: A&P Assessment and Plan (1) Obesity hypoventilation syndrome: Code(s): E66.2 - Morbid (severe) obesity with alveolar hypoventilation Status: Acute Assessment and Plan: Patient with morbid obesity and has gained 120 lb in the last year. Current BMI is 60.5. No evidence of thyroid disease with TSH of 2.73 and a free T4 of 1.35 both normal. Patient does have fluid overload but has been diuresed states he is breathing better and his edema has improved. His BNP today is 122. There is no evidence of bullous emphysema on his CT scan. Patient has obesity hypoventilation syndrome with a presentation blood gas of 7.33/56/77 and this worsened on BiPAP rate of 20, pressures 20/12 in 60% FiO2 with a blood gas of 7.31/76/62. Serum bicarbonate on admission was 36. The patient would benefit from noninvasive ventilation to prevent further deterioration and subsequent hospitalizations. The patient stated the BiPAP was uncomfortable and could not sleep with this. I changed him to a noninvasive ventilator with the AVAPS mode and adjusted the settings to comfort resulting in a rate of 20, tidal volume 500, EPAP 10, minimal inspiratory pressure 11, maximal inspiratory pressure 25, inspiratory time 1.0, rise of 3 and 60% FiO2. Patient's leak was 48. He felt he could tolerate this. 10/23/22: Continue noninvasive ventilation when the patient sleeps and on a p.r.n. basis. I will check an ABG in the morning on these settings to assess his ventilation. I will initiated process for home noninvasive ventilator with the AVAPS-AE mode. 10/24 Patient states he was off the BiPAP yesterday during most of the day. Patient wore noninvasive ventilator with the AVAPS mode last night and said he slept well and the settings were comfortable after he got used to it for the 1st hour. rate of 20, tidal volume 500, EPAP 10, minimal inspiratory pressure 11, maximal inspiratory pressure 25, inspiratory time 1.0, rise of 3 and 60% FiO2 and ABG prior to removal //110. Currently is on 9 L nasal cannula saturations 91%. White blood cell count 18.4, creatinine 0.7. He has no wheezing on exam. edema is improved on Lasix 40 IV b.i.d. and his weight is 189.6 kg cumulative diuresis is -2.7 L since admission Plan: ABG demonstrates the current AVAPS settings provide adequate ventilation. We sent an order request for noninvasive ventilation with an AVAPS-AE mode to the [place] [place] with the settings of rate 20, tidal volume 500, minimal expiratory pressure 5, maximal expiratory pressure 15, minimal inspiratory pressure 6, maximal inspiratory pressure 25, inspiratory time 1.0 and 6 L bleed in. 10/25 patient is tolerating the noninvasive ventilation with the AVAPS mode at night and said he slept better than he has in the last few months. States his breathing is at normal and is currently on 8 L nasal cannula saturation 90%. States he has a very rare cough and no phlegm production. patient had an overnight oximetry on the AVAPS mode with 44% oxygen and this was increased to 50% at 2:55 a.m. because of desaturations. Overall the average saturation was 90%. His low saturation was 85%. His time with saturation less than or equal to 88% was 64 minutes or 23% of the monitored time. His oxygen desaturation index was 11.5. I will repeat an overnight oximetry after patient's oxygenation has improved and continue 50% FiO2 at this time. Discussed with Marilee West. Will follow with you. (2) Fluid overload: Qualifiers: Hypervolemia type: unspecified Qualified Code(s): E87.70 - Fluid overload, unspecified Code(s): E87.70 - Fluid overload, unspecified Status: Acute Assessment and Plan: Patient prevents with worsening lower extremity edema and abdominal distention. He has been treated with Lasix 40 IV b.i.d. with a good response. 10/23/22: Agree with as aggressive diuresis as tolerated by his cardiac and r
--- NOTE | 2022-10-25 14:19 | PM.IMPN ---
Progress Note: A&P Assessment and Plan (1) Acute respiratory failure with hypoxia and hypercapnia: Code(s): J96.01 - Acute respiratory failure with hypoxia; J96.02 - Acute respiratory failure with hypercapnia Status: Acute Assessment and Plan: Patient presented to the hospital with complaints of increasing shortness of breath and leg swelling for the past 5 days. He was noted to have SpO2 80s on room air and dropped to 75% while ambulating in the emergency department. He was placed on 4 L nasal cannula with SpO2 mid 90s. ABG was completed and noted pH 7.33, PaO2 55, PO2 76.9 and serum TCO2 36 suggesting some acute worsening of chronic hypercapnia. Patient was placed on bipap at that time. Overnight patient was noted to desaturate to 38% while sleeping and nursing notes indicate patient required sternal rub and was difficult to arouse. Repeat ABG at 4:00 a.m. showed pH 7.31, pCO2 76, and PaO2 62. Bipap settings were adjusted to 09/05/22/FiO2 60%. 10/23/22 Repeat ABG at 0800 showed improvement with pH 7.37, PaCO2 58.2, PaO2 66, and oxyhemoglobin 90.4. Continue current BiPAP settings for now until evaluated by Pulmonology. 10/24 ABG pH 7.379, pCO2 50.8, PO2 109, serum bicarb 39. May be a component of compensatory alkalosis given diuresis. Chest x-ray and CTA chest showed extensive ground-glass pulmonary opacities suggesting possible pulmonary edema versus atypical infection continue IV ceftriaxone and azithromycin for possible pneumonia; WBC 16 on admission, CRP 1.9, procalcitonin 0.1 Continue iV diuresis for suspected pulmonary edema; BNP 341 but may be falsely depressed due to obesity. Echocardiogram without evidence of CHF, however, body habitus limited study. CTA chest was nondiagnostic for pulmonary embolus. V/Q scan recommended however patient did have abnormal chest x-ray. D-dimer 0.61. Venous Doppler negative for DVT. May consider repeat CTA given ongoing hypoxemia, will defer to pulmonology Patient is obese BMI 60 and reportedly was noted to have significant desaturation while asleep. Suggesting obesity related hypoventilation. Findings also consistent obstructive sleep Pulmonology has been consulted and recommendations are appreciated. Discussed the case Dr. Abreu today Patient will need ongoing noninvasive ventilation. Plan for overnight oximetry study tonight Currently patient is requiring 8 L supplemental O2 per nasal cannula (2) Obesity hypoventilation syndrome: Code(s): E66.2 - Morbid (severe) obesity with alveolar hypoventilation Status: Acute Assessment and Plan: As above. Continue with BiPAP overnight. Pulmonology consulted and managing. (3) Pneumonia: Qualifiers: Pneumonia type: due to unspecified organism Laterality: bilateral Lung location: unspecified part of lung Qualified Code(s): J18.9 - Pneumonia, unspecified organism Code(s): J18.9 - Pneumonia, unspecified organism Status: Acute Assessment and Plan: Patient presented with WBC 16.9, and shortness of breath. He denied fever, chills, night sweats, rigors, sputum. On CTA chest showed diffuse haziness it may suggest atypical pneumonia versus pulmonary edema. Started on azithromycin 500 mg IV Q 24 hours and IV Rocephin 2 g Q 24 hours, 1st dose 10/23/2022 Trend CBC Continue respiratory support as above Remains afebrile Blood cultures pending COVID-19, influenza A/B, and RSV PCR negative Continue antibiotics as above. WBC 14 today. Leukocytosis is likely secondary to IV steroids given on 10/23 and improving (4) Fluid overload: Qualifiers: Hypervolemia type: unspecified Qualified Code(s): E87.70 - Fluid overload, unspecified Code(s): E87.70 - Fluid overload, unspecified Status: Acute Assessment and Plan: Patient presented to the hospital with bilateral lower extremity up to the abdomen and imaging suggestive possible pulmonary edema. BNP 3
[2022-10-25 17:32] LABS: Influenza A QL RT-PCR Negative (Negative); Influenza B QL RT-PCR Negative (Negative); RSV RNA, RT-PCR Negative (Negative); SARS-CoV-2 RNA PCR Negative (Negative)
[2022-10-26] VITALS (30 sets, daily range): BP systolic 118–153; BP diastolic 65–91; PULSE 88–122; RESP 20–23; TEMP 36–36.6; O2SAT 30–99
[2022-10-26] MEDS: IPRATROPIUM BR 0.02% INH SOLN 0.5 MG/2.5 ML VIAL INHALATION ×2 (03:49→08:45)
[2022-10-26] MEDS: ALBUTEROL SULFATE NEB 2.5 MG/3 ML INH INHALATION ×2 (03:49→08:45)
[2022-10-26 04:33] LABS: Basophils Absolute Auto 0.1 K/mm3 (0.0-0.1); Basophils Percent Auto 0.5 % (0.2-1.2); Eosinophils Absolute Auto 0.2 K/mm3 (0-0.3); Eosinophils Percent Auto 1.6 % (0-4.4); Hemoglobin 16.4 g/dL (14.0-18.0); Immature Granulocyte Absolute 0.05 K/mm3 (0.00-0.031); Immature Granulocyte Percent A 0.4 % (0-0.5); Lymphocytes Absolute Auto 2.24 K/mm3 (0.9-3.2); Lymphocytes Percent Auto 17.3 % (18.3-44.2); Mean Corpuscular HGB Conc 29.8 g/dl (32-36); Mean Corpuscular Hemoglobin 25.6 pg (26-34); Mean Corpuscular Volume 85.9 fl (80-100); Mean Platelet Volume 9.4 fl (7.4-10.4); Monocytes Absolute Auto 1.7 K/mm3 (0.1-0.6); Neutrophils Absolute Auto 8.7 K/mm3 (1.3-6.7); Neutrophils Percent Auto 67.2 % (45.5-73.1); Platelet Count Result 238 k/mm3 (150-375); Red Cell Distribution Width 18.7 % (11.5-14.5)
[2022-10-26 04:55] LABS: Alanine Aminotransferase 32 U/L (6-50); Albumin Level 4.2 g/dL (3.5-5.1); Alkaline Phosphatase 93 U/L (38-126); Anion Gap 3 mmol/L (8-16); Aspartate Amino Transferase 25 U/L (17-59); Bilirubin,Total 0.9 mg/dL (0.2-1.3); Blood Urea Nitrogen 20 mg/dL (9-20); Calcium 8.7 mg/dL (8.4-10.2); Carbon Dioxide 39 mmol/L (22-30); Chloride 91 mmol/L (98-107); Estimated CRCL calculation 217 ml/min; Estimated Glomerular Filt Rate > 60; Glucose 100 mg/dL (65-110); Sodium 133 mmol/L (137-145)
[2022-10-26 05:32] LABS: HIV 1/2 Ab P24 Ag Result Negative (Negative)
[2022-10-26] MEDS: FUROSEMIDE INJ 40 MG/4 ML VIAL IV PUSH ×2 (08:22→16:15)
[2022-10-26] MEDS: cefTRIAXone 2 GM/NS 100 ML 2 GM/100 ML BAG IVPB (08:23)
[2022-10-26] MEDS: AZITHROMYCIN 500 MG/NS 250 ML 500 MG/250 ML BAG 250 MG IVPB (08:23)
[2022-10-26] MEDS: ENOXAPARIN 40 MG/0.4 ML SYRINGE SUB-Q (08:23)
--- NOTE | 2022-10-26 10:57 | P.PNPL_ITS ---
Progress Note: A&P Assessment and Plan (1) Obesity hypoventilation syndrome: Code(s): E66.2 - Morbid (severe) obesity with alveolar hypoventilation Status: Acute Assessment and Plan: Patient with morbid obesity and has gained 120 lb in the last year. Current BMI is 60.5. No evidence of thyroid disease with TSH of 2.73 and a free T4 of 1.35 both normal. Patient does have fluid overload but has been diuresed states he is breathing better and his edema has improved. His BNP today is 122. There is no evidence of bullous emphysema on his CT scan. Patient has obesity hypoventilation syndrome with a presentation blood gas of 7.33/56/77 and this worsened on BiPAP rate of 20, pressures 20/12 in 60% FiO2 with a blood gas of 7.31/76/62. Serum bicarbonate on admission was 36. The patient would benefit from noninvasive ventilation to prevent further deterioration and subsequent hospitalizations. The patient stated the BiPAP was uncomfortable and could not sleep with this. I changed him to a noninvasive ventilator with the AVAPS mode and adjusted the settings to comfort resulting in a rate of 20, tidal volume 500, EPAP 10, minimal inspiratory pressure 11, maximal inspiratory pressure 25, inspiratory time 1.0, rise of 3 and 60% FiO2. Patient's leak was 48. He felt he could tolerate this. 10/23/22: Continue noninvasive ventilation when the patient sleeps and on a p.r.n. basis. I will check an ABG in the morning on these settings to assess his ventilation. I will initiated process for home noninvasive ventilator with the AVAPS-AE mode. 10/24 Patient states he was off the BiPAP yesterday during most of the day. Patient wore noninvasive ventilator with the AVAPS mode last night and said he slept well and the settings were comfortable after he got used to it for the 1st hour. rate of 20, tidal volume 500, EPAP 10, minimal inspiratory pressure 11, maximal inspiratory pressure 25, inspiratory time 1.0, rise of 3 and 60% FiO2 and ABG prior to removal //110. Currently is on 9 L nasal cannula saturations 91%. White blood cell count 18.4, creatinine 0.7. He has no wheezing on exam. edema is improved on Lasix 40 IV b.i.d. and his weight is 189.6 kg cumulative diuresis is -2.7 L since admission Plan: ABG demonstrates the current AVAPS settings provide adequate ventilation. We sent an order request for noninvasive ventilation with an AVAPS-AE mode to the [employer] [place] with the settings of rate 20, tidal volume 500, minimal expiratory pressure 5, maximal expiratory pressure 15, minimal inspiratory pressure 6, maximal inspiratory pressure 25, inspiratory time 1.0 and 6 L bleed in. 10/25 patient is tolerating the noninvasive ventilation with the AVAPS mode at night and said he slept better than he has in the last few months. States his breathing is at normal and is currently on 8 L nasal cannula saturation 90%. States he has a very rare cough and no phlegm production. patient had an overnight oximetry on the AVAPS mode with 44% oxygen and this was increased to 50% at 2:55 a.m. because of desaturations. Overall the average saturation was 90%. His low saturation was 85%. His time with saturation less than or equal to 88% was 64 minutes or 23% of the monitored time. His oxygen desaturation index was 11.5. I will repeat an overnight oximetry after patient's oxygenation has improved and continue 50% FiO2 at this time. Later in the day CT angiogram of the chest was negative for PE. There were increased diffuse infiltrates and consolidation posteriorly. 10/26 patient said he slept well with the hospital noninvasive ventilator with the AVAPS. He is breathing better today than he has in the last month. He st
--- NOTE | 2022-10-26 16:30 | PM.IMPN ---
Progress Note: A&P Assessment and Plan (1) Acute respiratory failure with hypoxia and hypercapnia: Code(s): J96.01 - Acute respiratory failure with hypoxia; J96.02 - Acute respiratory failure with hypercapnia Status: Acute Assessment and Plan: Patient presented to the hospital with complaints of increasing shortness of breath and leg swelling for the past 5 days. He was noted to have SpO2 80s on room air and dropped to 75% while ambulating in the emergency department. He was placed on 4 L nasal cannula with SpO2 mid 90s. ABG was completed and noted pH 7.33, PaO2 55, PO2 76.9 and serum TCO2 36 suggesting some acute worsening of chronic hypercapnia. Patient was placed on bipap at that time. Overnight patient was noted to desaturate to 38% while sleeping and nursing notes indicate patient required sternal rub and was difficult to arouse. Repeat ABG at 4:00 a.m. showed pH 7.31, pCO2 76, and PaO2 62. Bipap settings were adjusted to 09/05/22/FiO2 60%. 10/23/22 Repeat ABG at 0800 showed improvement with pH 7.37, PaCO2 58.2, PaO2 66, and oxyhemoglobin 90.4. Continue current BiPAP settings for now until evaluated by Pulmonology. 10/24 ABG pH 7.379, pCO2 50.8, PO2 109, serum bicarb 39. May be a component of compensatory alkalosis given diuresis. Chest x-ray and CTA chest showed extensive ground-glass pulmonary opacities suggesting possible pulmonary edema versus atypical infection continue IV ceftriaxone and azithromycin for possible pneumonia; WBC 16 on admission, CRP 1.9, procalcitonin 0.1 Continue iV diuresis for suspected pulmonary edema; BNP 341 but may be falsely depressed due to obesity. Echocardiogram without evidence of CHF, however, body habitus limited study. Initial CTA chest was nondiagnostic for pulmonary embolus. V/Q scan recommended however patient did have abnormal chest x-ray. D-dimer 0.61. Venous Doppler negative for DVT. Repeat CTA in 10/25/2022 negative again, however limited sensitivity by fair opacification of pulmonary arteries Patient is obese BMI 60 and reportedly was noted to have significant desaturation while asleep, suggesting obesity related hypoventilation. Findings also consistent obstructive sleep Pulmonology has been consulted and recommendations are appreciated. Discussed the case Dr. Abreu today Patient will need ongoing noninvasive ventilation. Currently patient is requiring 6 L supplemental O2 per nasal cannula Planning for overnight oximetry on home unit tonight with repeat ABG in the morning (2) Obesity hypoventilation syndrome: Code(s): E66.2 - Morbid (severe) obesity with alveolar hypoventilation Status: Acute Assessment and Plan: As above. Continue with BiPAP overnight. Pulmonology consulted and managing. (3) Pneumonia: Qualifiers: Pneumonia type: due to unspecified organism Laterality: bilateral Lung location: unspecified part of lung Qualified Code(s): J18.9 - Pneumonia, unspecified organism Code(s): J18.9 - Pneumonia, unspecified organism Status: Acute Assessment and Plan: Patient presented with WBC 16.9, and shortness of breath. He denied fever, chills, night sweats, rigors, sputum. On CTA chest showed diffuse haziness it may suggest atypical pneumonia versus pulmonary edema. Started on azithromycin 500 mg IV Q 24 hours and IV Rocephin 2 g Q 24 hours, 1st dose 10/23/2022. Plan to complete 5 days of IV azithromycin and 7 days of IV Rocephin Trend CBC Continue respiratory support as above Remains afebrile Blood cultures pending, negative to date COVID-19, influenza A/B, and RSV PCR negative Continue antibiotics as above. WBC trending down, 13 today. White count also may be elevated due to IV steroids given on 10/23 (4) Fluid overload: Qualifiers: Hypervolemia type: unspecified Qualified Code(s): E87.70 - Fluid overload, unspecified Code(s): E87.70 - Fluid overload, unspecified
[2022-10-26] MEDS: FUROSEMIDE INJ 40 MG/4 ML VIAL 20 MG IV PUSH (18:04)
--- NOTE | 2022-10-26 18:31 | PC.NURSE ---
Weaned [place] to 4L however patient does not tolerate well, back to 7L [place]. Patient ambulated to chair without issue
[2022-10-27] VITALS (21 sets, daily range): BP systolic 131–171; BP diastolic 73–86; PULSE 90–117; RESP 16–20; TEMP 36.1–36.4; O2SAT 80–95
[2022-10-27 04:50] LABS: Alveolar/Arterial O2 Gradient 202.3 mmHg; Base Excess ABG 10.8 mEq/l (+/-2.0); Carboxyhemoglobin 1.6 % THb (0-2.0); Fractional Inspired Oxygen 50 %; HCO3 ABG 39.8 mEq/l (22.0-26.0); Methemoglobin ABG 0.5 %THb (0-1.5); Oxygen Content ABG 22.4 %vol (16.0-22.0); Oxygen Saturation ABG 94.4 % (95.0-100.0); Oxyhemoglobin 91.6 % THb (90.0-100.0); PO2 FiO2 Ratio Arterial Blood 1.52 %; Reduced Hemoglobin 6.3 %THb (0-5.0); Total Hemoglobin 17.4 g/dL (12.0-18.0); pH ABG 7.376 (7.350-7.450)
[2022-10-27 04:52] LABS: Device OTHER DEVICE; Modified Allen's Test Pass; PCO2 ABG 69.5 mmHg (35.0-45.0); Site Drawn LEFT RADIAL
[2022-10-27 06:24] LABS: Hematocrit 55.3 % (42.0-52.0); Hemoglobin 16.6 g/dL (14.0-18.0); Mean Corpuscular Volume 86.5 fl (80-100); Mean Platelet Volume 9.4 fl (7.4-10.4); Platelet Count Result 249 k/mm3 (150-375); Red Blood Count 6.39 M/mm3 (4.6-6.20); Red Cell Distribution Width 18.7 % (11.5-14.5)
[2022-10-27 06:47] LABS: Blood Urea Nitrogen 20 mg/dL (9-20); Calcium 9.1 mg/dL (8.4-10.2); Carbon Dioxide > 40 mmol/L (22-30); Chloride 90 mmol/L (98-107); Estimated CRCL calculation 192 ml/min; Estimated Glomerular Filt Rate > 60; Glucose 100 mg/dL (65-110); Potassium 3.9 mmol/L (3.4-5.0); Sodium 135 mmol/L (137-145)
[2022-10-27 06:50] LABS: Rheumatoid Factor < 12.0 IU/ML (<12)
[2022-10-27 06:53] LABS: Creatine Kinase 51 U/L (55-170)
[2022-10-27] MEDS: FUROSEMIDE INJ 40 MG/4 ML VIAL 60 MG IV PUSH (08:47)
[2022-10-27] MEDS: ENOXAPARIN 40 MG/0.4 ML SYRINGE SUB-Q (08:47)
[2022-10-27] MEDS: cefTRIAXone 2 GM/NS 100 ML 2 GM/100 ML BAG IVPB (08:47)
[2022-10-27] MEDS: AZITHROMYCIN 500 MG/NS 250 ML 500 MG/250 ML BAG 250 MG IVPB (08:48)
--- NOTE | 2022-10-27 10:57 | PM.PNPUL ---
Progress Note: A&P Assessment and Plan (1) Obesity hypoventilation syndrome: Code(s): E66.2 - Morbid (severe) obesity with alveolar hypoventilation Status: Acute Assessment and Plan: Patient with morbid obesity and has gained 120 lb in the last year. Current BMI is 60.5. No evidence of thyroid disease with TSH of 2.73 and a free T4 of 1.35 both normal. Patient does have fluid overload but has been diuresed states he is breathing better and his edema has improved. His BNP today is 122. There is no evidence of bullous emphysema on his CT scan. Patient has obesity hypoventilation syndrome with a presentation blood gas of 7.33/56/77 and this worsened on BiPAP rate of 20, pressures 20/12 in 60% FiO2 with a blood gas of 7.31/76/62. Serum bicarbonate on admission was 36. The patient would benefit from noninvasive ventilation to prevent further deterioration and subsequent hospitalizations. The patient stated the BiPAP was uncomfortable and could not sleep with this. I changed him to a noninvasive ventilator with the AVAPS mode and adjusted the settings to comfort resulting in a rate of 20, tidal volume 500, EPAP 10, minimal inspiratory pressure 11, maximal inspiratory pressure 25, inspiratory time 1.0, rise of 3 and 60% FiO2. Patient's leak was 48. He felt he could tolerate this. 10/23/22: Continue noninvasive ventilation when the patient sleeps and on a p.r.n. basis. I will check an ABG in the morning on these settings to assess his ventilation. I will initiated process for home noninvasive ventilator with the AVAPS-AE mode. 10/24 Patient states he was off the BiPAP yesterday during most of the day. Patient wore noninvasive ventilator with the AVAPS mode last night and said he slept well and the settings were comfortable after he got used to it for the 1st hour. rate of 20, tidal volume 500, EPAP 10, minimal inspiratory pressure 11, maximal inspiratory pressure 25, inspiratory time 1.0, rise of 3 and 60% FiO2 and ABG prior to removal //110. Currently is on 9 L nasal cannula saturations 91%. White blood cell count 18.4, creatinine 0.7. He has no wheezing on exam. edema is improved on Lasix 40 IV b.i.d. and his weight is 189.6 kg cumulative diuresis is -2.7 L since admission Plan: ABG demonstrates the current AVAPS settings provide adequate ventilation. We sent an order request for noninvasive ventilation with an AVAPS-AE mode to the [employer] [place] with the settings of rate 20, tidal volume 500, minimal expiratory pressure 5, maximal expiratory pressure 15, minimal inspiratory pressure 6, maximal inspiratory pressure 25, inspiratory time 1.0 and 6 L bleed in. 10/25 patient is tolerating the noninvasive ventilation with the AVAPS mode at night and said he slept better than he has in the last few months. States his breathing is at normal and is currently on 8 L nasal cannula saturation 90%. States he has a very rare cough and no phlegm production. patient had an overnight oximetry on the AVAPS mode with 44% oxygen and this was increased to 50% at 2:55 a.m. because of desaturations. Overall the average saturation was 90%. His low saturation was 85%. His time with saturation less than or equal to 88% was 64 minutes or 23% of the monitored time. His oxygen desaturation index was 11.5. I will repeat an overnight oximetry after patient's oxygenation has improved and continue 50% FiO2 at this time. Later in the day CT angiogram of the chest was negative for PE. There were increased diffuse infiltrates and consolidation posteriorly. 10/26 patient said he slept well with the hospital noninvasive ventilator with the AVAPS. He is breathing better today than he has in the last month. He states that he sleeps very well, wakes up redo phonated with more energy. Edema is decreased. When I entered the room he was on 8 L nasal cannula saturations 94%. I decreased him to 6 L nasal cannula and his saturations were 9
--- NOTE | 2022-10-27 11:39 | PM.DS ---
DS: Admitting Diagnosis Discharge Date 10/27/2022 Admitting Diagnosis Acute on chronic respiratory failure Obesity hypoventilation syndrome Pneumonia DS: Discharge Diagnosis Discharge Diagnosis (1) Respiratory failure with hypoxia: Code(s): J96.91 - Respiratory failure, unspecified with hypoxia Status: Acute (2) Obesity hypoventilation syndrome: Code(s): E66.2 - Morbid (severe) obesity with alveolar hypoventilation Status: Acute (3) Pneumonia: Qualifiers: Pneumonia type: due to unspecified organism Laterality: bilateral Lung location: unspecified part of lung Qualified Code(s): J18.9 - Pneumonia, unspecified organism Code(s): J18.9 - Pneumonia, unspecified organism Status: Acute (4) Fluid overload: Qualifiers: Hypervolemia type: unspecified Qualified Code(s): E87.70 - Fluid overload, unspecified Code(s): E87.70 - Fluid overload, unspecified Status: Acute DS: Summary Hospital Course Hospital Course: Assessment and Plan (1) Obesity hypoventilation syndrome: ?Code(s): E66.2 - Morbid (severe) obesity with alveolar hypoventilation ?Status:?Acute ?Assessment and Plan: ? Patient with morbid obesity and has gained 120 lb in the last year.? Current BMI is 60.5. ? No evidence of thyroid disease with TSH of 2.73 and a free T4 of 1.35 both normal. ? Patient does have fluid overload but has been diuresed states he is breathing better and his edema has improved.? His BNP today is 122. ? There is no evidence of bullous emphysema on his CT scan. Patient has obesity hypoventilation syndrome? with a presentation blood gas of 7.33/56/77 and this worsened on BiPAP rate of 20, pressures 20/12 in 60% FiO2 with a blood gas of? 7.31/76/62. ? Serum bicarbonate on admission was 36. ? The patient would benefit from noninvasive ventilation to prevent further deterioration and subsequent hospitalizations. The patient stated the BiPAP was uncomfortable and could not sleep with this.? I changed him to a noninvasive ventilator with the AVAPS mode? and adjusted the settings to comfort resulting in a rate of 20, tidal volume 500, EPAP 10, minimal inspiratory pressure 11, maximal inspiratory pressure 25, inspiratory time 1.0, rise of 3 and 60% FiO2.? Patient's leak was 48. ? He felt he could tolerate this. 10/23/22: ? Continue? noninvasive ventilation when the patient sleeps and on a p.r.n. basis.? I will check an ABG in the morning on these settings to assess his ventilation.? I will initiated process for home noninvasive ventilator with the AVAPS-AE mode. patient had an overnight oximetry on the AVAPS mode with 44% oxygen? and this was increased to? 50% at 2:55 a.m. because of desaturations.? Overall the average saturation was 90%.? His low saturation was 85%.? His time with saturation less than or equal to 88% was 64 minutes or 23% of the monitored time.? His oxygen desaturation index was 11.5. ? CT angiogram of the chest was negative for PE.? There were? increased diffuse? infiltrates and consolidation posteriorly. 10/27 ? Patient wore is?home noninvasive ventilator with the AVAPS-AE settings: rate 20,? tidal volume 500, minimal expiratory pressure 5, maximal expiratory pressure 15, minimal inspiratory pressure 6, maximal inspiratory pressure 25, inspiratory time 1.0 and 6 L bleed in.?the patient tolerated this well and said he slept well without any issues.? The patient had desaturations after 1 hour and 30 minutes and the bleeding was increased to 8 L.? overnight oximetry demonstrated average saturation 88%.? Low saturation 74%.? Time with saturation less than or equal to 88% was 161 minutes or 48% of the monitored time.? His oxygen desaturation index was 20.9.? After the increased to 8 L the saturation still remained less than 88% for 6 minutes given amount of time. Patient had ABG prior to removal on these settings with 8 L bleed in with a pH of 7.38/70/76 (?these home settings provi
--- NOTE | 2022-10-27 11:39 | HOMEO2EVAL ---
Evaluation was performed at [facility] Home Oxygen Evaluation RC: Home Oxygen (O2) Evaluation Start: 10/27/22 09:11 Freq: ONCE Status: Active Protocol: RPE Activity Type Activity Date Activity User E-sign Co-sign Detail Recorded Client Recorded Date Recorded By Document 10/27/22 09:45 [email or web address] [email or web address] 10/27/22 11:39 DJO Document 10/27/22 09:50 [email or web address] [email or web address] 10/27/22 11:39 DJO Document 10/27/22 09:50 [email or web address] [email or web address] 10/27/22 11:39 DJO Document 10/27/22 09:55 [email or web address] [email or web address] 10/27/22 11:39 DJO Document 10/27/22 10:00 [email or web address] [email or web address] 10/27/22 11:39 DJO Document 10/27/22 10:05 [email or web address] [email or web address] 10/27/22 11:39 DJO Document 10/27/22 10:10 [email or web address] [email or web address] 10/27/22 11:39 DJO Document 10/27/22 10:15 [email or web address] [email or web address] 10/27/22 11:39 DJO Document 10/27/22 10:20 [email or web address] [email or web address] 10/27/22 11:39 DJO Document 10/27/22 10:35 [email or web address] [email or web address] 10/27/22 11:39 DJO 10/27/22 10/27/22 10/27/22 09:45 09:50 09:50 Home O2 Evaluation [Oxygen] -Test Phase Resting Resting Resting -Oxygen Delivery Room Air Nasal Cannula Nasal Cannula -Oxygen Flow Rate (L/min) 1 2 [Pulse Oximetry] -Pulse Oximetry (90-100 %) 80 L 82 L 94 [Pulse Rate] -Pulse Rate (60-100 beats/min) 110 H 108 H 107 H [Evaluation] -Activity Tolerance [Charges] -Treatment Charges O2 Evaluation - Inpatient 10/27/22 10/27/22 10/27/22 09:55 10:00 10:05 Home O2 Evaluation [Oxygen] -Test Phase Resting Resting Resting -Oxygen Delivery Nasal Cannula Nasal Cannula Nasal Cannula -Oxygen Flow Rate (L/min) 3 4 5 [Pulse Oximetry] -Pulse Oximetry (90-100 %) 86 L 88 L 91 [Pulse Rate] -Pulse Rate (60-100 beats/min) 105 H 106 H 104 H [Evaluation] -Activity Tolerance [Charges] -Treatment Charges 10/27/22 10/27/22 10/27/22 10:10 10:15 10:20 Home O2 Evaluation [Oxygen] -Test Phase Exercise Exercise Exercise -Oxygen Delivery Nasal Cannula Nasal Cannula Nasal Cannula -Oxygen Flow Rate (L/min) 5 6 7 [Pulse Oximetry] -Pulse Oximetry (90-100 %) 86 L 88 L 91 [Pulse Rate] -Pulse Rate (60-100 beats/min) 114 H 117 H 116 H [Evaluation] -Activity Tolerance Fair [Charges] -Treatment Charges 10/27/22 10:35 Home O2 Evaluation [Oxygen] -Test Phase Resting -Oxygen Delivery Nasal Cannula -Oxygen Flow Rate (L/min) 5 [Pulse Oximetry] -Pulse Oximetry (90-100 %) 91 [Pulse Rate] -Pulse Rate (60-100 beats/min) 104 H [Evaluation] -Activity Tolerance [Charges] -Treatment Charges
--- NOTE | 2022-10-27 11:52 | PCRCNOTE ---
HOME OXYGEN EVAL COMPLETE, 5 L AT REST AND 7 LITERS WITH ACTIVITY. O2 SET UP WITH [employer], PHONE NUMBER [phone]
[2022-10-28 04:34] LABS: Pneumococcal Antigen Urine Not Detected (Not Detected)
[2022-10-29 05:59] LABS: Legionella pneumophila Ag Ur Not Detected (Not Detected)
[2022-10-31 18:32] LABS: Mycoplasma IgM Antibody Titer 250 U/mL (<770)
[2022-11-01 18:18] LABS: ANA Cascade Screen Negative (Negative)
[2022-11-02 09:09] LABS: Anti Cyclic Citrullinated Pept 20 Units (<20)
[2022-11-03 14:01] LABS: Aldolase 6.1 U/L (<=8.1)
[2022-11-03 14:36] LABS: ANCA Screen Negative (Negative)
== END 2022-10-27 14:46 | disposition home or self-care (01) | DRG 133 ==
LOC: ANHED 14:25 → ANHIMU 18:59
PROVIDERS: Internal Medicine Pulmonary Disease; Nurse Practitioner Family; Physician Assistant; Admitting Provider Student in an Organized Health Care Education/Training Program; Emergency Provider Emergency Medicine; Visit Provider Hospitalist
DX: J96.01 Acute respiratory failure with hypoxia (principal); J18.9 Pneumonia, unspecified organism; E66.2 Morbid (severe) obesity with alveolar hypoventilation; E87.70 Fluid overload, unspecified; Z68.44 Body mass index [BMI] 60.0-69.9, adult; J96.02 Acute respiratory failure with hypercapnia; J45.909 Unspecified asthma, uncomplicated; Z20.822 Contact with and (suspected) exposure to COVID-19; F17.210 Nicotine dependence, cigarettes, uncomplicated; F31.9 Bipolar disorder, unspecified; R60.0 Localized edema; R29.818 Other symptoms and signs involving the nervous system
CPT/HCPCS: 36415; 36600; 71045; 71275; 80048; 80053; 81001; 82085; 82375; 82550; 82805; 83050; 83735; 83880; 84145; 84439; 84443; 84484; 85025; 85027; 85380; 85610; 85730; 86036; 86038; 86140; 86200; 86331; 86430; 86606; 86609; 86703; 86738; 87040; 87449; 87637; 87899; 93005; 93970; 94002; 94618; 94640; 94762; 96375; 99285; A9270; C8929; G0432; J0456; J0696; J1650; J1940; J2930; Q9957; Q9967

== ENCOUNTER 2022-11-05 13:16 | Outpatient (CLI) | payer MEDICAID, SELFPAY ==
--- NOTE | ~2022-11-05 | XR_ITS ---
XR chest 2V DATE: 11/05/2022 13:30 INDICATION: Shortness of breath. Recent pneumonia. TECHNIQUE: PA and lateral COMPARISON: 10/25/2022 CT pulmonary scan 10/2022 CT pulmonary scan 10/2022 portable AP chest FINDINGS: There is prominent discoid atelectasis in the right mid lung. Interval resolution of pulmonary vascular prominence and probable bilateral pulmonary infiltrates sin ce 10/2022. No pleural effusion is noted. Pulmonary vascularity appears within normal range. No pneum othorax. Normal heart size. IMPRESSION: Discoid atelectasis, right midlung Reviewed, dictated and finalized at location A.
== END 2022-11-05 13:17 | disposition home or self-care (01) ==
LOC: ANHIMG 13:17
PROVIDERS: PCP Emergency Medicine; Visit Provider Emergency Medicine
DX: J98.11 Atelectasis (principal)
CPT/HCPCS: 71046

== ENCOUNTER 2023-06-16 15:55 | Emergency (ER) | payer BC, SELFPAY ==
--- NOTE | ~2023-06-16 | CT_ITS ---
EXAMINATION: CTA chest PE protocol DATE: 06/16/2023 20:59 INDICATION: CP, cough, tachy TECHNIQUE: Computed tomography angiography (CTA) of the chest was performed with 100 mL Omnipaque-350 intravenous contrast timed to evaluate the pulmonary arteries. Coronal maximum intensity projection 3D-reconstructions were created by the technologist. The dose-length product (DLP) was 995.47 mGy-cm. Automated exposure control and iterative reconstruction technique were employed. COMPARISON: X-ray chest, same date; CTPA 10/25/2022. FINDINGS: Lung parenchyma and airways: Clear. Pleura: Unremarkable. Thoracic inlet, axillae and chest wall: Unremarkable. Thoracic aorta: Normal. Mediastinum: Prominent bilateral hilar lymph nodes. Heart and pericardium: Normal. Coronary artery calcifications: Absent. Upper abdomen: Hepatic steatosis. Bones: No acute osseous finding. Pulmonary arteries: Study quality: Study limited by mild motion, contrast phase, and quantum mottle. Suboptimal evaluation of subsegmental arteries. No central or segmental pulmonary emboli detected. IMPRESSION: No CT evidence of acute central or segmental pulmonary embolus. Limited evaluation of subsegmental ar teries. Bilateral hilar lymphadenopathy. Reviewed, dictated and finalized at location K. ING MACHINE OPERATOR IMPRESSION: No CT evidence of acute central or segmental pulmonary embolus. Limited evaluat ion of subsegmental arteries. Bilateral hilar lymphadenopathy.
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
--- NOTE | 2023-06-16 15:58 | ECG_ITS ---
Measurements Intervals [place] Rate: 95 P: 42 VT: 148 QRS: 19 QRSD: 96 T: 56 QT: 339 QTc: 426 Interpretive Statements SINUS RHYTHM BORDERLINE ST-T WAVE ABNORMALITY- HIGH LATERAL LEADS BASELINE ARTIFACT- I, III, AVR, AVL, AVF, V6 BORDERLINE ECG COMPARED TO ECG 10/22/2022 14:15:29 SINUS RHYTHM NOW PRESENT Electronically Signed On 06-16-2023 16:16:34 JACQUARD FIXER by Flakito Harvey D.O.
[2023-06-16 15:59] VITALS: BP 150/85; PULSE 104; RESP 24; TEMP 36.8; O2SAT 95
[2023-06-16 16:15] LABS: Basophils Absolute Auto 0.1 K/mm3 (0.0-0.1); Basophils Percent Auto 0.3 % (0.2-1.2); Eosinophils Percent Auto 0.2 % (0-4.4); Hematocrit 45.8 % (42.0-52.0); Immature Granulocyte Absolute 0.08 K/mm3 (0.00-0.031); Immature Granulocyte Percent A 0.4 % (0-0.5); Lymphocytes Absolute Auto 2.75 K/mm3 (0.9-3.2); Lymphocytes Percent Auto 14.8 % (18.3-44.2); Mean Corpuscular HGB Conc 32.8 g/dl (32-36); Mean Corpuscular Hemoglobin 29.6 pg (26-34); Mean Corpuscular Volume 90.5 fl (80-100); Mean Platelet Volume 9.8 fl (7.4-10.4); Monocytes Absolute Auto 1.3 K/mm3 (0.1-0.6); Monocytes Percent Auto 6.9 % (2.6-8.5); Neutrophils Absolute Auto 14.4 K/mm3 (1.3-6.7); Neutrophils Percent Auto 77.4 % (45.5-73.1); Platelet Count Result 321 k/mm3 (150-375); Red Blood Count 5.06 M/mm3 (4.6-6.20); Red Cell Distribution Width 13.8 % (11.5-14.5); White Blood Count 18.5 K/mm3 (4.5-10.0)
[2023-06-16 16:26] LABS: Alanine Aminotransferase 60 U/L (6-50); Albumin Level 4.8 g/dL (3.5-5.1); Alkaline Phosphatase 107 U/L (38-126); Anion Gap 13 mmol/L (8-16); Aspartate Amino Transferase 33 U/L (17-59); Bilirubin,Total 0.6 mg/dL (0.2-1.3); Blood Urea Nitrogen 15 mg/dL (9-20); Carbon Dioxide 25 mmol/L (22-30); Chloride 102 mmol/L (98-107); Estimated CRCL calculation 183 ml/min; Estimated Glomerular Filt Rate > 60; Glucose 123 mg/dL (65-110); INR 0.9; Lipase 35 U/L (23-300); Potassium 3.6 mmol/L (3.4-5.0); Prothrombin Time 12.5 Seconds (11.1-14.7); Sodium 140 mmol/L (137-145)
[2023-06-16 16:27] LABS: Partial Thromboplastin Time 28.4 SECONDS (22.3-36.8)
[2023-06-16 16:37] LABS: Troponin I < 0.012 ng/mL (0.000-0.034)
--- NOTE | 2023-06-16 20:05 | ECG_ITS ---
Measurements Intervals [place] Rate: 77 P: 34 AR: 142 QRS: 35 QRSD: 97 T: 52 QT: 361 QTc: 411 Interpretive Statements SINUS RHYTHM BASELINE WANDER- V3-V6 NORMAL ECG COMPARED TO ECG 06/16/2023 16:03:01 NO SIGNIFICANT CHANGES Electronically Signed On 06-17-2023 7:58:36 GLASS TINTER by Flakito Harvey D.O.
[2023-06-16 20:26] LABS: Troponin I < 0.012 ng/mL (0.000-0.034)
--- NOTE | 2023-06-16 20:31 | ED.CHESTPAIN ---
HPI - Chest Pain General Chief Complaint: Chest Pain Stated Complaint: cp Time Seen by Provider: 06/16/23 20:14 History of Present Illness HPI narrative: Patient is a 37-year-old male with a history of sleep apnea presenting with chest pain. Patient states that for the last 6-8 hours he has had intermittent substernal chest pain that sometimes shoots to his right shoulder and sometimes to his left shoulder. States that he has been intermittently short of breath over the last few days with a slightly productive cough. States that he monitors his oxygen at home and he was not hypoxic. He uses oxygen as needed at night. States that he has not had an increasing oxygen requirement. He takes Lasix, he denies leg swelling or weight gain. No fevers or chills. No abdominal pain, nausea vomiting, diarrhea, dysuria. Related Data Home Medications Medication Instructions Recorded Confirmed furosemide 80 mg tablet (Lasix) 40 mg PO BID 03/27/23 Allergies Allergy/AdvReac Type Severity Reaction Status Date / Time No Known Allergies Allergy Verified 03/27/23 14:52 Review of Systems Review of Systems: All systems reviewed & are unremarkable except as noted in HPI and below PMFSH Past Medical History Medical History Kidney stone Morbid obesity Tobacco dependence Surgical History Surgical History History of orthopedic surgery Right hand surgery. Family History Family History Mother Coronary artery disease COPD (chronic obstructive pulmonary disease) IBS (irritable bowel syndrome) Diverticulitis Grandparent Diabetes mellitus Social History Social History Social History: Surrogate medical decision maker: Brinda Castillo, mother. Code status: Full code. Years smoked: 18 Smoking status: Former smoker (Quit 10/22/2022) Tobacco type: cigarettes Smoking end date: 10/22/22 Alcohol intake: former Substance use: current Substance use type: marijuana Lack of Transportation: No Lack of Food: Never True Current Housing: I Have Housing Concerned About Future Housing: No Difficulty Paying Gas/Electric Bills: No Difficulty Paying for Meds: No Currently Unemployed: YES Education: Grade School Difficulty w/ Childcare or Family Care: No Additional living arrangements comments: Patient lives with his mother in [place]. He has 2 young children. Additional occupation/education comments: Not currently employed. Spiritual care concerns: No Exam Narrative: GENERAL: Well-appearing, nontoxic, pleasant cooperative HEAD: Normocephalic, atraumatic. EYES: PERRLA and EOMI. ENT: Mucous membranes moist. NECK: Supple. CHEST: Clear to auscultation. No respiratory distress. No wheezing or crackles appreciated HEART: Regular rate and rhythm ABDOMEN: Soft, nontender, nondistended EXTREMITIES: Normal range of motion. No edema. SKIN: Warm, dry, no rash. NEURO: No focal deficits. Alert and oriented x3. PSYCH: Normal mood and affect. Course Vital Signs Vital signs: Vital Signs Temperature 98.3 F 06/16/23 15:59 Pulse Rate 104 H 06/16/23 15:59 Respiratory Rate 24 H 06/16/23 15:59 Blood Pressure 150/85 H 06/16/23 15:59 Pulse Oximetry 95 06/16/23 15:59 Temperature 98.3 F 06/16/23 15:59 Pulse Rate 90 06/16/23 21:22 Respiratory Rate 24 H 06/16/23 15:59 Blood Pressure 150/85 H 06/16/23 15:59 Pulse Oximetry 99 06/16/23 21:22 Oxygen Delivery Room Air 06/16/23 21:22 MDM - Chest Pain MDM Narrative Medical decision making narrative: 37-year-old male presenting with chest pain, cough, shortness of breath. Patient was initially tachycardic on arrival, this had normalized by the time I evaluated him. Saturating well on room air
[2023-06-16 21:22] VITALS: PULSE 90; O2SAT 99
[2023-06-16 21:34] LABS: Influenza A QL RT-PCR Negative (Negative); Influenza B QL RT-PCR Negative (Negative); RSV RNA, RT-PCR Negative (Negative); SARS-CoV-2 RNA PCR Negative (Negative)
[2023-06-16 21:42] LABS: Appearance Urine Clear (Clear); Bacteria Urine None Seen /hpf; Bilirubin Urine Negative (Negative); Blood Urine Negative (Negative); Color Urine Yellow (Yellow); Glucose Urine UA Negative (Negative); Ketones Urine Negative (Negative); Leukocyte Esterase Ur Negative LEU/UL (Negative); Mucus Urine Present /lpf; Need Manual Microscopic Reviewed; Nitrate Urine Negative (Negative); Non Pathogenic Casts 0-2; Protein Urine Trace mg/dL (Negative); RBC Urine 0-2 /hpf (0-2); Squamous Epithelial Cell Urine None seen /hpf (Few); Urobilinogen Urine 0.2 mg/dL (<2.0); WBC Urine 0-5 /hpf; pH Urine 5.5 (5.0-9.0)
[2023-06-16 22:03] LABS: Add Urine Microscopic? YES; Specific Grav Ur 1.015 (1.001-1.035)
== END 2023-06-16 22:22 | disposition home or self-care (01) ==
PROVIDERS: Emergency Medicine; Emergency Provider Emergency Medicine; PCP Emergency Medicine
DX: R07.89 Other chest pain (principal); Z20.822 Contact with and (suspected) exposure to COVID-19; E66.01 Morbid (severe) obesity due to excess calories; Z68.43 Body mass index [BMI] 50.0-59.9, adult; Z87.442 Personal history of urinary calculi; Z87.891 Personal history of nicotine dependence; R94.31 Abnormal electrocardiogram [ECG] [EKG]
CPT/HCPCS: 36415; 71046; 71275; 80053; 81001; 83690; 84484; 85025; 85610; 85730; 87637; 93005; 99284; Q9967

== ENCOUNTER 2024-02-20 10:26 | Outpatient (CLI) | payer OTHER, SELFPAY ==
[2024-02-20 10:48] LABS: Basophils Absolute Auto 0.1 K/mm3 (0.0-0.1); Basophils Percent Auto 0.3 % (0.2-1.2); Eosinophils Absolute Auto 0.3 K/mm3 (0-0.3); Hematocrit 42.6 % (42.0-52.0); Hemoglobin 14.2 g/dL (14.0-18.0); Immature Granulocyte Absolute 0.07 K/mm3 (0.00-0.031); Immature Granulocyte Percent A 0.5 % (0-0.5); Lymphocytes Absolute Auto 3.69 K/mm3 (0.9-3.2); Lymphocytes Percent Auto 24.6 % (18.3-44.2); Mean Corpuscular HGB Conc 33.3 g/dl (32-36); Mean Corpuscular Hemoglobin 29.6 pg (26-34); Mean Corpuscular Volume 88.8 fl (80-100); Mean Platelet Volume 9.3 fl (7.4-10.4); Monocytes Absolute Auto 1.4 K/mm3 (0.1-0.6); Neutrophils Absolute Auto 9.5 K/mm3 (1.3-6.7); Neutrophils Percent Auto 63.6 % (45.5-73.1); Platelet Count Result 311 k/mm3 (150-375); Red Cell Distribution Width 13.4 % (11.5-14.5)
[2024-02-20 11:43] LABS: Alanine Aminotransferase 38 U/L (6-50); Albumin Level 4.4 g/dL (3.5-5.1); Alkaline Phosphatase 88 U/L (38-126); Anion Gap 9 mmol/L (4-12); Aspartate Amino Transferase 26 U/L (17-59); Bilirubin,Total 0.5 mg/dL (0.2-1.3); Blood Urea Nitrogen 15 mg/dL (9-20); CRP 2.8 mg/dL (<1.0); Calcium 9.1 mg/dL (8.4-10.2); Carbon Dioxide 25 mmol/L (22-30); Chloride 104 mmol/L (98-107); Estimated Glomerular Filt Rate > 60; Glucose 98 mg/dL (65-110); Potassium 4.3 mmol/L (3.4-5.0); Sodium 138 mmol/L (137-145)
[2024-02-20 14:57] LABS: Erythrocyte Sedimentation Rate 19 mm/hr (0-20)
== END 2024-02-20 10:27 | disposition home or self-care (01) ==
PROVIDERS: PCP Emergency Medicine; Visit Provider Internal Medicine Hematology & Oncology
DX: D72.829 Elevated white blood cell count, unspecified (principal)
CPT/HCPCS: 36415; 80053; 85025; 85652; 86140; 88184

== ENCOUNTER 2024-09-04 10:58 | Outpatient (CLI) | payer OTHER, SELFPAY ==
[2024-09-04 11:14] LABS: Basophils Absolute Auto 0.1 K/mm3 (0.0-0.1); Basophils Percent Auto 0.4 % (0.2-1.2); Eosinophils Absolute Auto 0.3 K/mm3 (0-0.3); Hemoglobin 14.7 g/dL (14.0-18.0); Immature Granulocyte Absolute 0.05 K/mm3 (0.00-0.031); Immature Granulocyte Percent A 0.3 % (0-0.5); Lymphocytes Absolute Auto 4.24 K/mm3 (0.9-3.2); Lymphocytes Percent Auto 28.1 % (18.3-44.2); Mean Corpuscular HGB Conc 33.4 g/dl (32-36); Mean Corpuscular Hemoglobin 29.3 pg (26-34); Mean Corpuscular Volume 87.8 fl (80-100); Mean Platelet Volume 9.3 fl (7.4-10.4); Monocytes Absolute Auto 1.4 K/mm3 (0.1-0.6); Monocytes Percent Auto 9.4 % (2.6-8.5); Neutrophils Percent Auto 59.8 % (45.5-73.1); Platelet Count Result 349 k/mm3 (150-375); Red Blood Count 5.01 M/mm3 (4.6-6.20); Red Cell Distribution Width 13.7 % (11.5-14.5); White Blood Count 15.1 K/mm3 (4.5-10.0)
[2024-09-04 11:18] LABS: Blood Urea Nitrogen 19 mg/dL (8-26); Carbon Dioxide 24 mmol/L (22-30); Chloride 105 mmol/L (98-109); Estimated Glomerular Filt Rate > 60; Glucose 98 mg/dL (70-105); Potassium 4.3 mmol/L (3.5-4.9); Sodium 139 mmol/L (138-146)
[2024-09-04 11:18] LABS: Platelet Estimate Adequate (Adequate); Schistocytes None Seen
[2024-09-04 11:20] LABS: Atypical Lymphocytes Present
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
--- OUTSIDE RECORDS SUMMARY | 2024-09-04 11:49 | XMS_ITS | Encounter Summary ---
Author Organization [facility] Address [address] [facility] [place] [address] Care Team Providers Care Playground Supervisor Name Role Phone Unavailable Primary Care Provider Unavailabl e Reason for Visit * Reason Onset Date Comments Patient Requested Call 09/10/2023 Encounter Details Date Type Department Care Team (Late st Contact Info) Description 09/10/2023 Telephone [facility] - Centralized Scheduling [address] [place] [address] Unknown, Provider Patient Requested Call Social History Tobacco Use Types Packs/Day Years Used Date Smoking Tobacco: Never Assessed Sex and Gender Information Value Date Recorded Sex Assigned at Not on file Legal Sex Male 9:11 AM CDT Gender Identity Not on file Sexual Orientation Not on file documented as of this encounter Miscellaneous Notes * Telephone Encounter - Kaveh Kearney - 09/10/2023 9:17 AM CDT Mr. Dinh's mother called today wanting to get him scheduled in INF DIS for exposure to TB. Please anna an advised. [phone] documented in this encounter Plan of Treatment Not on file documented as of this encounter Visit Diagnoses Not on filedocumented in this encounter
--- OUTSIDE RECORDS SUMMARY | 2024-09-04 11:49 | XMS_ITS | Clinical Summary ---
Author Organization [facility] Address [address] [place] [address] Care Team Providers Care Ice Cream Shop Associate Name Role Phone Angel Payan MD Primary Care Provider [phone] Allergies No known active allergies Medications furosemide (LASIX) 40 mg tablet Take 40 mg by mouth daily. Active pantoprazole (PROTONIX) 40 mg Tablet, Delayed Release (E.C.) Take 40 mg by mouth daily. 02/13/2024 Active aspirin (ECOTRIN EC) 81 mg Tablet, Delayed Release (E.C.) Take 81 mg by mouth daily. Active Active Problems No known active problems Encounters Date Type Department Care Team Description 09/04/2024 11:45 AM CDT Office Visit [facility] Oncology and Hematology [facility] [address] [place] [address] Thompson Abraham MD Leukocytosis, unspecified type (Primary Dx) 09/01/2024 Orders Only [facility] Oncology and Hematology [facility] [address] [place] [address] Thompson Abraham MD Leukocytosis, unspecified type (Primary Dx) 08/06/2024 External Device Data STL ABSTRACTION Provider, Abstract 07/15/2024 External Device Data STL ABSTRACTION Provider, Abstract 06/12/2024 External Device Data STL ABSTRACTION Provider, Abstract from Last 3 Months Family History Medical History Relation Name Comments No Known Problems Brother No Known Problems Child 1 No Known Problems Child 2 No Known Problems Father No Known Problems Mother No Known Problems Sister 1 No Known Problems Sister 2 Relation Name Status Comments Brother Alive Child 1 Alive Child 2 Alive Father Mother Alive Sister 1 Alive Sister 2 Alive Social History Tobacco Use Types Packs/Day Years Used Date Smoking Tobacco: Former Cigarettes 1 20 0 10/22/2002 - 10/22/2022 Smokeless Tobacco: Never Tobacco Cessation:Counseling Given: Not Answered Alcohol Use Standard Drinks/Week Comments Yes 0 (1 standard drink = 0.6 oz pur e alcohol) Socially Sex and Gender Information Value Date Recorded Sex Assigned at Not on file Legal Sex Male 8:52 AM CDT Gender Identity Not on file Sexual Orientation Not on file Last Filed Vital Signs Vital Sign Reading Time Taken Comments Blood Pressure 136/88 09/04/2024 11:14 AM CDT Pulse 80 09/04/2024 11:14 AM CDT Temperature 35.8 C (96.5 F) 09/04/2024 11:14 AM CDT Respiratory Rate 16 09/04/2024 11:1 4 AM CDT Oxygen Saturation 92% 09/04/2024 11: 14 AM CDT Inhaled Oxygen Concentration - - Weight 168.9 kg (372 lb 6.4 oz) 025 11:14 AM CDT Height 180.3 cm (5' 11 ) 02/13/2024 2:51 PM CDT Body Mass Index 51.94 02/13/2024 2:51 PM CDT Plan of Treatment Upcoming Encounters Date Type Department Care Team (Late st Contact Info) Description 06/10/2025 10:15 AM REAL ESTATE MARKETING COORDINATOR Office Visit [facility] Oncology and Hematology [place] [address] [place] [address] [facility] [address] [place] [address] Thompson Abraham MD [address] [facility] [address] [place] [address] Health Maintenance Due Date Last Done Comments Pre-Diabetes and Diabetes Screening 1987 DTAP/TDAP/TD VACCINES (1 - Tdap) 11/16/2006 HEPATITIS B VACCINES (1 of 3 - 19+ 3-dose series) 11/16/2006 Preventative Visit-Managed Medicaid 11/16/2006 INFLUENZA VACCINE (#1) 2023 HPV VACCINES Aged Out No longer eligi ble based on patient's age to complete this topic Insurance [employer] Care Teams Ice Cream Shop Associate Relationship Specialty Start Date End Date Angel Payan MD [address] [place] [phone] PCP - General Family Practice 03/11/24
--- OUTSIDE RECORDS SUMMARY | 2024-09-04 11:49 | XMS_ITS | Clinical Summary ---
Author Organization [facility] Address [address] [place] [address] Care Team Providers Care Grief Counselor Name Role Phone Provider, None Primary Care Provider Unavailabl e Allergies Active Allergy Reactions Criticality Noted Date Comments Shellfish-Derived Products Unknown 8 Medications naproxen (NAPROSYN) 500 MG Tablet Take 1 Tab by mouth 2 times daily as needed for Moderate or more severe pain. 30 Tab 02/26/2019 Active furosemide (LASIX) 40 MG Tablet Take by mouth. Active Active Problems Problem Noted Date Diagnosed Date Lymphocytosis 08/06/2023 Family History Medical History Relation Name Comments Attention Deficit Hyperactivity Disorder Brother Bipolar Disorder Father Asthma Mother Inflammatory Bowel Disease Mother Asthma Sister 1 Cancer Sister 1 Relation Name Status Comments Brother Alive Child 1 Alive Child 2 Alive Father Suicide Mother Alive Sister 1 Alive Sister 2 Alive Social History Tobacco Use Types Packs/Day Years Used Date Smoking Tobacco: Former Cigarettes Q uit: 10/2022 Smokeless Tobacco: Never Alcohol Use Standard Drinks/Week Comments Yes 0 (1 standard drink = 0.6 oz pur e alcohol) Socially Sex and Gender Information Value Date Recorded Sex Assigned at Not on file Legal Sex Male 10:03 PM CDT Gender Identity Not on file Sexual Orientation Not on file Last Filed Vital Signs Vital Sign Reading Time Taken Comments Blood Pressure 128/80 08/06/2023 8:09 AM CDT Pulse 75 08/06/2023 8:09 AM CDT Temperature 36.7 C (98 F) 08/06/2023 8:09 AM CDT Respiratory Rate 18 08/06/2023 8:09 AM CDT Oxygen Saturation 95% 08/06/2023 8:09 AM CDT Inhaled Oxygen Concentration - - Weight 179.1 kg (394 lb 12.8 oz) 08/06/2023 8:09 AM CDT Height 180.3 cm (5' 11 ) 08/06/2023 8:09 AM CDT Body Mass Index 55.06 08/06/2023 8:09 AM CDT Plan of Treatment Health Maintenance Due Date Last Done Comments Hepatitis C Virus (HCV) Screening 1987 TdaP Immunization 1987 Influenza Immunization (#1) 2024 SARS-COV-2 Immunization ( - 2023-25 season) 2024 Respiratory Syncytial Virus (RSV) Immunization (Adult) (1 - 1-dose 75+ series) 11/16/2062 Hepatitis B Immunization Completed 999, 02/08/1998, 12/29/1997 DTaP/Tdap/Td Immunization Discontinued 2002, 02/03/1993, 07/17/1991, Additional history exists Meningococcal Immunization (ACWY) Aged Out No longer eligible based on patient's age to complete this topic Pneumococcal Immunization Combined Aged Out No longer eligible based on patient's age to complete this topic Rotavirus Immunization Aged Out No lo nger eligible based on patient's age to complete this topic Insurance MEDICAID BL[place] Care Teams Grief Counselor Relationship Specialty Start Date End Date Provider, None [place] PCP - General 02/25/19
--- OUTSIDE RECORDS SUMMARY | 2024-09-04 11:49 | XMS_ITS | Encounter Summary ---
Author Organization [facility] Address [address] [place] [address] Phone Care Team Providers Care Certified Ophthalmic Technologist Name Role Phone Provider, None Primary Care Provider Unavailabl e Encounter Details Date Type Department Care Team (Late st Contact Info) Description 10/08/2023 Telephone [facility] [address] [place] [address] Cleveland Ramos MD [address] [facility] [address] [place], [place] [id number] Social History Tobacco Use Types Packs/Day Years [...] encounter Miscellaneous Notes * Telephone Encounter - Su Lowe - 10/08/2023 3:47 PM CDT Called pt about missed apt pt stated that his mom is currently in the hospital and that is his transportation to office visit he will call and rs tomorrow. documented in this encounter Plan of Treatment Not on file documented as of this encounter Visit Diagnoses Not on filedocumented in this encounter Care Teams Certified Ophthalmic Technologist Relationship Specialty Start Date End Date Provider, None [place] PCP - General 02/25/19 documented as of this encounter
--- OUTSIDE RECORDS SUMMARY | 2024-09-04 11:49 | XMS_ITS | Clinical Summary ---
Author Organization [facility] Address [place] [address] Care Team Providers Care Cake Puncher Name Role Phone None, Provider MD Primary Care Provider Unavaila ble Allergies Active Allergy Reactions Criticality Noted Date Comments Shellfish-Derived Products Unknown 8 Medications cyclobenzaprine 10 MG tablet Take 1 tablet (10 mg total) by mouth 3 (three) times daily as needed for Muscle Spasms. 16 tablet 11/05/2017 Active Family History Medical History Relation Comments Diabetes Paternal Grandmother Relation Status Comments Paternal Grandmother Social History Tobacco Use Types Packs/Day Years Used Date Smoking Tobacco: Every Day Cigarettes Smokeless Tobacco: Never Tobacco Cessation:Ready to Q uit: Not Asked; Counseling Given: Not Answered Alcohol Use Standard Drinks/Week Comments No 0 (1 standard drink = 0.6 oz pur e alcohol) Sex and Gender Information Value Date Recorded Sex Assigned at Not on file Legal Sex Male 7:58 PM CDT Gender Identity Not on file Sexual Orientation Not on file Last Filed Vital Signs Vital Sign Reading Time Taken Comments Blood Pressure 149/94 05/09/2023 12:18 AM LETTERER Pulse 90 05/09/2023 12:18 AM LETTERER Temperature 36.7 C (98 F) 05/09/2023 12:18 AM LETTERER Respiratory Rate 18 05/09/2023 12:18 AM LETTERER Oxygen Saturation 99% 05/09/2023 12:18 AM LETTERER Inhaled Oxygen Concentration - - Weight 181.4 kg (400 lb) 05/09/2023 12:18 AM LETTERER Height 180.3 cm (5' 11 ) 05/09/2023 12:18 AM LETTERER Body Mass Index 55.79 05/09/2023 12:18 AM LETTERER Plan of Treatment Health Maintenance Due Date Last Done Comments Annual Physical 11/16/1990 Pneumococcal Vaccine: Pediatrics (0 to 5 Years) and At-Risk Patients (6 to 49 Years) (1 of 2 - PCV) 11/16/1993 DTaP, Tdap and Td Vaccines (5 - Tdap) 01/27/2003 01/26/2003, 02/03/1993, 07/17/1991, Additional history exists Hepatitis C 11/16/2005 COVID-19 Vaccine (2023- season) 2024 Hepatitis B Vaccines Completed 07/12/1998, 02/08/1998, 12/29/1997 HPV Vaccines Aged Out No longer eligi ble based on patient's age to complete this topic Meningococcal B Vaccine Aged Out No l onger eligible based on patient's age to complete this topic Meningococcal Vaccine Aged Out No ayaka tate eligible based on patient's age to complete this topic RSV Immunizations Under 20 Months Aged Out No longer eligible based on patient's age to complete this topic Insurance Care Teams Cake Puncher Relationship Specialty Start Date End Date None, Provider, MD PCP - General UNKNOWN PHYSICIAN SPECIALTY 05/09/23
--- OUTSIDE RECORDS SUMMARY | 2024-09-04 11:49 | XMS_ITS | Encounter Summary ---
Author Organization [facility] Address [address] [place] [address] Care Team Providers Care Teacher Education Director Name Role Phone Angel Payan MD Primary Care Provider [phone] Encounter Details Date Type Department Care Team (Late st Contact Info) Description 09/04/2024 11:45 AM CDT Office Visit [facility] Oncology and Hematology - [place] [address] [facility] [address] [place] [address] Thompson Abraham MD [address] [facility] [address] [place] [address] Leukocytosis, unspecified type (Primary Dx) Social History Tobacco Use Types Packs/Day Years [...] on file documented as of this encounter Last Filed Vital Signs Vital Sign Reading [...] 6.4 oz) 025 11:14 AM CDT Height - - Body Mass Index 51.94 02/13/2024 2:51 PM CDT documented in this encounter Plan of Treatment Upcoming Encounters Date Type Department Care Team (Late st Contact Info) Description 06/10/2025 10:15 AM BOLTING MACHINE OPERATOR Office Visit [facility] Oncology and Hematology - [place] [address] [facility] [address] [place] [phone] Thompson Abraham MD [address] [facility] [address] [place] [address] Scheduled Orders Name Type Priority Associated Diagnoses Orde r Schedule CBC WITH DIFFERENTIAL Lab Stat Leukocytosis, unspecified type Expected: 06/06/2025, Expires: 09/04/2025 BASIC METABOLIC PANEL Lab Stat Leukocytosis, unspecified type Expected: 06/06/2025, Expires: 09/04/2025 documented as of this encounter Visit Diagnoses Diagnosis Leukocytosis, unspecified type- Primary documented in this encounter Care Teams Teacher Education Director Relationship Specialty Start Date End Date Angel Payan MD [address] [place] [address] [address] [place] [address] PCP - General Family Practice 03/11/24 documented as of this encounter
--- OUTSIDE RECORDS SUMMARY | 2024-09-04 11:49 | XMS_ITS | Encounter Summary ---
Author Organization [facility] Address [address] [place] [address] Phone Care Team Providers Care Hydrostatic Tubing Tester Name Role Phone Angel Payan MD Primary Care Provider [phone] Encounter Details Date Type Department Care Team (Late st Contact Info) Description 08/13/2024 Telephone [facility] Infectious Diseases [address] [place] [address] [address] [place] [address] Aida Saha RMA Social History Tobacco Use Types Packs/Day Years Used Date Smoking Tobacco: Former Cigarettes Alcohol Use Standard Drinks/Week Comments Not Currently [...] on file Legal Sex Male 8:[address] Gender Identity Not on file Sexual Orientation Not on file documented as of this encounter Miscellaneous Notes * Telephone Encounter - Aida Saha RMA - 08/13/2024 10:52 AM CDT Jc called and was unsure of the reason for his appt today at 3:40P. He would like to know if the appt today is necessary. Please call [phone] documented in this encounter Plan of Treatment Not on file documented as of this encounter Visit Diagnoses Not on filedocumented in this encounter Care Teams Hydrostatic Tubing Tester Relationship Specialty Start Date End Date Angel Payan MD [address] [place] [id number] PCP - General Emergency Medicine 03/05/24 documented as of this encounter
--- OUTSIDE RECORDS SUMMARY | 2024-09-04 11:49 | XMS_ITS | CONTINUITY OF CARE DOCUMENT ---
Author Name azeb bowie Address Unknown Organization [facility] Address [address] [place] [address] Phone [phone] Care Team Providers Care Divorce Attorney Name Role Phone James ALSTON, Janak Perez Unavailable [phone] DIANA VIRAMONTES MD Unavailable [phone] DIANA VIRAMONTES MD Unavailable [phone] PROBLEMS Condition Status Date Provider Notes Cardiology examination active Kalyani Sammon Sleep apnea active Kalyani Sammon Respiratory failure active Kalyani Sammon Hypertension active Kalyani Sammon Obesity - Morbid active Kalyani Sammon Leg edema active Kalyani Sammon Prediabetes active Janak Ramirez MD ENCOUNTERS Date Type Provider Location Encounter Diag nosis - In-person encounter Office Visit Janak Ramirez MD [facility] Prediabetes - In-person encounter Office Visit Janak Ramirez MD [facility] Cardiology examinationSleep apneaRespiratory failureHypertensionObesity - MorbidLeg edema VITAL SIGNS Date Observation Value Provider Body Mass Index (Ratio) 59.11 kg/m2 Janak Ramirez MD blood pressure, cuff size large Ja rret blood pressure, diastolic 78 mm[Hg] Ja rret blood pressure, systolic 140 mm[Hg] Julia dawkins pulse rate 102 /min Remi respiratory rate E&M 12 /min oxygen saturation, oximetry 94 % Remi weight E&M 412 [lb_av] Remi y height E&M 70 [in_i] Remi Body Mass Index (Ratio) 58.25 kg/m2 Natalia Garcia blood pressure, diastolic 65 mm[Hg] Gail nkLogic blood pressure, systolic 142 mm[Hg] Yashira kLogqueenie blood pressure, diastolic 65 mm[Hg] St leticia Michel blood pressure, systolic 142 mm[Hg] Bienvenido Pearson oxygen saturation, oximetry 95 % Valarie Pearson pulse rate 100 /min Valarie Pearson respiratory rate E&M 18 /min Valarie Frausto deepak Inhaled O2 5 L/min Valarie Pearson height E&M 70 [in_i] Valarie Pearson weight E&M 406 [lb_av] Valarie Pearson ALLERGIES No Known Drug Allergies HISTORY OF MEDICATION USE Medication Status Instructions Dates Provider Indications Com ments furosemide 40 mg tablet active TAKE 1 TABLET BY MOUTH NEEDED AND DIRECTED Maria Eugenia Washburn furosemide 40 mg tablet completed 1 tablet by mouth as directed NEEDED - Maria Eugenia Washburn SOCIAL HISTORY Date Observation Value Provider social history reviewed E&M revi ewed - no changes required Janak Ramirez MD social history reviewed E&M revi ewed - no changes required Janak Ramirez MD social history E&M S moking History: Halie joyjose enrique is a former smoker. Janak Ramirez MD passive cigarette sm berenice exposure no Valarie Pearson chewing tobacco use Never Valarie Nugent smoking history, total pack/day 1 Valarie Pearson smoking, year quit 2022 Valarie Del Valle is cigarette use yes Valarie Pearson smoking status Former smoker Valarie Pearson INSURANCE PROVIDERS Payer name Policy type / Coverage type Shady red republican ID [employer] MEDICA[employer] Medicaid [id number] ADVANCE DIRECTIVES Name Date DISCUSSED - NO DECISION MADE TREATMENT PLAN Date Name Performer [id number],S, P t had recent addmission to [facility] due to respiratory failure. I do not have any of the hospital records. He is on O2 right now. He has diffuse leg edema. Janak Ramirez MD [id number],S, B P today: 140/78 P rior BP: 142/65 (11/08/2022) His updated medication list for this problem includes: Furosemide 80 Mg Tablet (Furosemide) ..... Take 1 tablet by mouth twice daily Janak Ramirez MD [id number],N, A 1C was 6.6 froms labs done 11/30/22 Janak Ramirez MD [id number],S, P ut onto new CPAP machine rather than BIPAP. Janak Ramirez MD [id number],S, E vent that brought patient to the hospital was likely not a cardiac issue. Janak Ramirez MD [id number],S, P atient advised to lose weight. Janak Ramirez MD [id number],S, O n lasix 80mg. Will lower lasix dose and change to as needed. R ecommend compression stockings. Venous Doppler 11/30/22 showed C ONCLUSIONS: 1 . Technically difficult study - limited evaluation due to technical limitations and patient body habitus. The CFV, DFV, SFJ, and p roximal GSV were not visualized bilaterally. 2 . No evidence of a deep vein thrombosis of the lower extremities bilaterally. 3 . Venous insufficiency of the right femoral vein. Janak Ramirez MD [id number],C,Weight loss a dvised Janak Ramirez MD [id number],C, B P today: 142/65 His updated medication list for this problem includes: Furosemide 80 Mg Tablet (Furosemide) ..... Take 1 tablet by mouth twice daily Janak Ramirez MD [id number],C,P t had recent addmission to [facility] due to respiratory failure. I do not have any of the hospital records. He is on O2 right now. He has diffuse leg edema. Janak Ramirez MD Cardiology: P t had recent addmission to [facility] due to respiratory failure. I do not have any of the hospital records. He is on O2 right now. He has diffuse leg edema. Janak Ramirez MD Cardiology: B P today: 140/78 P rior BP: 142/65 (11/08/2022) His updated medication list for this problem includes: Furosemide 80 Mg Tablet (Furosemide) ..... Take 1 tablet by mouth twice daily Janak Ramirez MD Cardiology: A 1C was 6.6 froms labs done 11/30/22 Janak Ramirez MD Cardiology: P ut onto new CPAP machine rather than BIPAP. Janak Ramirez MD Cardiology: E vent that brought patient to the hospital was likely not a cardiac issue. Janak Ramirez MD Cardiology: P atient advised to lose weight. Janak Ramirez MD Cardiology: O n lasix 80mg. Will lower lasix dose and change to as needed. R ecommend compression stockings. Venous Doppler 11/30/22 showed C ONCLUSIONS: 1 . Technically difficult study - limited evaluation due to technical limitations and patient body habitus. The CFV, DFV, SFJ, and p roximal GSV were not visualized bilaterally. 2 . No evidence of a deep vein thrombosis of the lower extremities bilaterally. 3 . Venous insufficiency of the right femoral vein. Janak Ramirez MD Cardiology:Weight loss advised G slick Ramirez MD Cardiology: B P today: 142/65 His updated medication list for this problem includes: Furosemide 80 Mg Tablet (Furosemide) ..... Take 1 tablet by mouth twice daily Janak Ramirez MD Cardiology:Pt had re cent addmission to [facility] due to respiratory failure. I do not have any of the hospital records. He is on O2 right now. He has diffuse leg edema. Janak Ramirez MD Date Name PROBNP, N TERMINAL BASIC METABOLIC PANE L W/EGFR Microalb/Creatinine Urine, Random HEMOGLOBIN A1c Venous Doppler Bilat eral LE - Reflux Complete Echo DLCO - 31781 FRC - 67924 FVC - 96283 HISTORY OF PROCEDURES Procedure Date Procedure Name Provider Procedure Notes S tatus Spirometry Janak Ramirez MD completed FVC / MVV - 16416 Janak Ramirez MD com pleted BLOOD COUNT HEMOGLOBIN Janak Ramirez MD completed FRC - 18076 Janak Ramirez MD completed SpO2 w/o 6min walk/titration Janak Ramirez MD completed SVC - 54780 Janak Ramirez MD completed DLCO - 15671 Janak Ramirez MD complete d EKG Janak Ramirez MD completed
--- OUTSIDE RECORDS SUMMARY | 2024-09-04 11:49 | XMS_ITS | Referral Summary ---
Author Organization [facility] Address [address] [place] [address] Care Team Providers Care Senior Designer Name Role Phone Angel Payan MD Primary Care Provider [phone] Encounters Date Type Department Care Team Description 08/13/2024 Telephone [facility] Infectious Diseases [address] [place] [address] Aida Saha RMA 08/13/2024 11:00 AM CDT Clinical Support [facility] Diabetes and Nutrition [address] [place] [address] Morbid obesity (HCC) (Primary Dx); OUMOU (obstructive sleep apnea); BMI 50.0-59.9, adult (HCC); Low back pain, unspecified back pain laterality, unspecified chronicity, unspecified whether sciatica present; Obstructive sleep apnea 07/24/2024 5:19 PM CRYSTALIZER - 07/24/2024 11:59 PM CRYSTALIZER Hospital Encounter [facility] [address] [place] [address] Encounter for disability determination Discharge Disposition: Discharge to home or self care 07/16/2024 11:00 AM CRYSTALIZER Clinical Support [facility] Diabetes [facility] Nutrition [address] [place] [address] Morbid obesity (HCC) (Primary Dx); OUMOU (obstructive sleep apnea); BMI 50.0-59.9, adult (HCC); Low back pain, unspecified back pain laterality, unspecified chronicity, unspecified whether sciatica present 07/15/2024 Telephone [facility] Medicine ([facility]) - [facility] [address], [place] [id number] Jamari Montenegro NP Medical Question/Miscellaneou s 06/18/2024 11:00 AM CRYSTALIZER Clinical Support [facility] Diabetes and Nutrition [address] [place] [address] Morbid obesity (HCC); Obstructive sleep apnea; BMI 50.0-59.9, adult (HCC); Low back pain, unspecified back pain laterality, unspecified chronicity, unspecified whether sciatica present from Last 3 Months Allergies Active Allergy Reactions Criticality Noted Date [...] -We will get the past imaging from [facility] - Discussed with patient the rational for treatment, culture results, risk of recurrent infection, signs/symptoms of recurrent infection, and to contact ID clinic with any questions or concerns. Social History Tobacco Use Types Packs/Day Years [...] on file Legal Sex Male 8:30 PM CRYSTALIZER Gender Identity Not on file Sexual Orientation Not on file Last Filed Vital Signs Vital Sign Reading Time Taken Comments Blood Pressure 122/81 04/16/2024 2:10 PM CRYSTALIZER Pulse 77 04/16/2024 2:10 PM CRYSTALIZER Temperature 36.6 C (97.8 F) 03/03/2024 9:12 AM CDT Respiratory Rate 16 07/25/2020 7:27 PM CRYSTALIZER Oxygen Saturation 96% 04/16/2024 2:1 0 PM CRYSTALIZER Inhaled Oxygen Concentration - - Weight 165.9 kg (365 lb 12.8 oz) 08/13/2024 12:14 PM CDT standing wt in office Height 177.8 cm (5' 10 ) 08/13/2024 12: 14 PM CDT Body Mass Index 52.49 08/13/2024 12:14 PM CDT Plan of Treatment Not on file Procedures Procedure Name Priority Date/Time Associated Diagnosis Comments XR CHEST PA LATERAL 2 VIEWS Schedule Routine, Read Routine (OP Routine) 07/24/2024 5:24 PM CRYSTALIZER Encounter for disability determination from Last 3 Months Results * XR Chest PA Lateral 2 Views (07/24/2024 5:24 PM CRYSTALIZER) Anatomical Region Laterality Modality Body, Chest N/A [...] Prince Sampson M.D. MJ: LESLIE Report ID: [id number] Reading Location: [place] [address] Procedure Note Prince Sampson MD - 07/27/2024 [...] Prince Sampson M.D. MJ: LESLIE Report ID: [id number] Reading Location: [place] [address] Cholo Blackburn MD IMG XR PROCEDURES Final Result from Last 3 Months Insurance IDPA [facility] Member Subscriber Plan / Payer (Ef fective 2024-Present) Name:Jc Dinh Maxime Relation to Subscriber:Self Name:Jc Dinh Maxime Payer ID:[id number] (NAIC) Group ID:Not on file Type:MEDICAID RISK OTHER Address: [address] [employer]URE[employer] OF DISABILITY Care Teams Senior Designer Relationship Specialty Start Date End Date Angel Payan MD [address] [place] [id number] PCP - General Emergency Medicine 03/05/24
--- OUTSIDE RECORDS SUMMARY | 2024-09-04 11:49 | XMS_ITS | Clinical Summary ---
Author Organization [facility] Address [address] [place] [address] Care Team Providers Care Hr Operations Advisor Name Role Phone Unavailable Primary Care Provider Unavailabl e Source Comments [email or web address],non-owned Affiliates and Associated Physician Practices is amultiple site organization consisting of ambulatory clinics and hospital sitesin [place], [place], [place] and [place]. This disclosure is being madepursuant to the Care Everywhere program and may not contain all information available regarding this patient. Last updated 18.[email or web address] Social History Tobacco Use Types Packs/Day Years Used Date Smoking Tobacco: Never Assessed Sex and Gender Information Value Date Recorded Sex Assigned at Not on file Legal Sex Male 9:11 AM CDT Gender Identity Not on file Sexual Orientation Not on file Plan of Treatment Health Maintenance Due Date Last Done Comments HIV SCREENING 11/16/2002 HEPATITIS C SCREENING 11/12/2005 DTAP/TDAP/TD VACCINES (1 - Tdap) 11/16/2006 HEPATITIS B VACCINE (1 of 3 - 19+ 3-dose series) 11/16/2006 COVID-19 VACCINE (1 - 2023-2 5 season) 2024 DEPRESSION SCREENING 05/21/2024 MEDICARE AWV CALENDAR YEAR 2024 INFLUENZA VACCINE (Season Ended) 2025 ZOSTER VACCINE (1 of 2) 11/16/2037 HIB VACCINE Aged Out No longer eligi ble based on patient's age to complete this topic HPV VACCINE Aged Out No longer eligi ble based on patient's age to complete this topic MENINGOCOCCAL (Group B) VACC INE SHARED DECISION-MAKING Aged Out No longer eligibl e based on patient's age to complete this topic MENINGOCOCCAL GROUPS A/C/Y/W VACCINE Aged Out No longer eligible b ased on patient's age to complete this topic PNEUMOCOCCAL VACCINE Aged Out No long er eligible based on patient's age to complete this topic Insurance BCBS MEDICARE ADV
[2024-09-04 12:28] LABS: Alanine Aminotransferase 32 U/L (6-50); Albumin Level 4.4 g/dL (3.5-5.1); Alkaline Phosphatase 86 U/L (38-126); Anion Gap 10 mmol/L (4-12); Aspartate Amino Transferase 21 U/L (17-59); Bilirubin,Total 0.2 mg/dL (0.2-1.3); Blood Urea Nitrogen 18 mg/dL (9-20); Calcium 9.4 mg/dL (8.4-10.2); Carbon Dioxide 24 mmol/L (22-30); Chloride 105 mmol/L (98-107); Estimated Glomerular Filt Rate > 60; Glucose 99 mg/dL (65-110); Potassium 4.4 mmol/L (3.4-5.0); Sodium 139 mmol/L (137-145)
== END 2024-09-04 10:59 | disposition home or self-care (01) ==
LOC: ANHLAB 10:59
PROVIDERS: PCP Emergency Medicine; Visit Provider Internal Medicine Hematology & Oncology
DX: D72.829 Elevated white blood cell count, unspecified (principal)
CPT/HCPCS: 36415; 80047; 80053; 85025